=== PATIENT | female | born 1960 | race Caucasian/White ===

== ENCOUNTER 2017-07-06 15:48 | Inpatient (IN) ==
[2017-07-06] MEDS ORDERED: Pantoprazole 40 MG VIAL IVP ONE (16:04)
[2017-07-06] MEDS ORDERED: Ondansetron 4 MG/2 ML VIAL IVP ONE (16:04)
--- NOTE | 2017-07-06 16:08 | Emergency Department Note ---
Disposition Clinical Impression: Hyponatremia GI bleed Qualifiers: GI bleed type/associated pathology: unspecified gastrointestinal hemorrhage type Qualified Code(s): K92.2 - Gastrointestinal hemorrhage, unspecified Disposition: Admitted As Inpatient Condition: Fair [facility]errals: [facility]Primary Care Provider[facility] - Forms: ED Satisfaction Letter Time of Disposition: 17:33 GI Bleed HPI - General Chief complaint: ED GI Bleed Stated complaint: NV/coffee ground emesis Time Seen by Provider: 07/06/17 16:01 Source: patient, EMS, other Mode of arrival: EMS Limitations: no limitations Nursing Notes Reviewed: Yes Vital Signs Reviewed: Yes - History of Present Illness HPI Narrative: 57-year-old nausea vomiting since last night was noted to have coffee-ground emesis at the [facility] today. Pt Subjective Complaint: coffee ground emesis Onset (ago): hour(s) (12) Consistency: intermittent Improves with: nothing Worsens with: nothing Context: other (Nausea vomiting) Associated symptoms: Reports: abdominal pain - Related Data Allergies Allergy/AdvReac Type Severity Reaction Status Date / Time [place] And Derivatives Allergy Difficulty Verified 07/06/17 15:59 Breathing orange Allergy Difficulty Verified 07/06/17 15:59 Breathing codeine AdvReac Insomnia Verified 07/06/17 15:59 Pineapple AdvReac Abdominal Verified 07/06/17 15:59 Pain Constitutional: Denies: fever, chills, weakness, weight change Eyes: Denies: eye pain, eye discharge, vision change ENT ED: Denies: ear pain, throat pain, dental pain, hearing loss, epistaxis, congestion, dysphagia Cardiovascular: Denies: chest pain, palpitations, dyspnea on exertion, edema, syncope Respiratory: Denies: cough, dyspnea, wheezes, hemoptysis, stridor Gastrointestinal: Reports: abdominal pain, nausea, vomiting, hematemesis. Denies: diarrhea, constipation, melena, hematochezia Genitourinary: Denies: dysuria, frequency, hematuria, discharge Musculoskeletal: Denies: back pain, neck pain, arthralgia, myalgia Integumentary: Denies: rash, abrasion, lesions Neurological: Denies: headache, weakness, numbness, paresthesias, confusion, abnormal gait, vertigo Psychiatric: Denies: anxiety, depression, suicidal thoughts, homicidal thoughts , auditory hallucinations, visual hallucinations Endocrine: Denies: fatigue Hematological/Lymphatic: Denies: easy bleeding, easy bruising Allergic/Immunologic: Denies: facial swelling, urticaria Past Medical History - Past Medical History Medical history: Reports: asthma, other Psychiatric history: Reports: schizophrenia [employer] history: Reports: endometriosis - Social History Smoking Status: Never smoker Smokeless Tobacco Status: No Alcohol use: Reports: none Drug use: Reports: none Physical Exam - General Limitations: no limitations General appearance: alert - Head Head exam: atraumatic, normocephalic, normal inspection - Eye Eye exam: Present: normal appearance, PERRL, EOMI - ENT ENT exam: normal exam, normal oropharynx, mucous membranes moist - Neck Neck exam: Present: normal inspection, full ROM, trachea midline - Chest Chest inspection: Present: normal inspection, symmetric chest wall rise - Respiratory Respiratory exam: Present: normal lung sounds bilaterally - Cardiovascular Cardiovascular exam: Present: regular rate, normal rhythm, normal heart sounds - Abdominal Exam Abdominal exam: Present: soft, tenderness. Absent: guarding, rebound Abdominal tenderness: Present: epigastrium - Extremities Exam Extremities exam: Present: normal inspection, full ROM. Absent: tenderness, pedal edema - Expanded Lower Extremity Exam Neurovascular/Tendon exam: Absent: motor deficit, sensory deficit, tendon deficit Gait: observed and normal - Back Exam Back exam: Present: normal inspection, full ROM. Absent: tenderness - Neurological Exam Neurological exam: Present: alert, oriented X3 - Psychiatric Psychiatric exam: Present: normal affect, normal mood - Skin Skin exam: Present: warm, dry, intact, normal color Course - Reevaluation(s) Reevaluation #1: 57-year-old coffee-ground emesis was found to have a sodium of 1:15. She is mentally clear and able answer questions without any difficulty. Time: 17:32 - Consultations Consultation #1: Discussed with Dr. Bautista nephrology. Eli*normal saline at 50 mL an hour, check sodiums every 2-4 hours do not cross 120 until the a.m. I did notify the hospitalist of these orders. Time: 17:31 Consultation #2: I discussed with , and did give Dr. Bautista's recommendations to her, she will admit. Time: 17:31 Vital Signs Temperature 98.1 F 07/06/17 15:56 Pulse Rate 97 07/06/17 15:56 Respiratory Rate 20 07/06/17 15:56 Blood Pressure 112/73 07/06/17 15:56 O2 Sat by Pulse Oximetry 97 07/06/17 15:56 Temperature 98.1 F 07/06/17 15:56 Pulse Rate 97 07/06/17 17:00 Respiratory Rate 20 07/06/17 17:00 Blood Pressure 127/59 07/06/17 17:00 O2 Sat by Pulse Oximetry 96 07/06/17 17:00 Oxygen Delivery Oxygen Delivery Room Air GI Bleed - Lab Data Result diagrams: 07/06/17 16:04 07/06/17 16:04 Lab Results 07/06/17 07/06/17 07/06/17 Range/Units 16:04 16:04 16:04 WBC 12.9 H (4.3-11.1) K/mcL RBC 3.74 L (3.82-4.97) M/mcL Hgb 11.7 (11.5-15.4) g/dL Hct 32.7 L (35.3-44.9) % MCV 87.4 (83.0-100.0) fL MCH 31.3 (28.0-33.3) pg MCHC 35.8 H (31.6-35.5) g/dL RDW 12.1 (11.5-14.5) % Plt Count 322 (140-400) K/mcL MPV 9.2 L (9.4-12.4) fL Immature Gran % 0.3 (0-4) % Seg Neutrophils % 83.5 % Lymphocytes % 11.6 % Monocytes % 4.3 % Eosinophils % 0.1 % Basophils % 0.2 % Neutrophils # 10.8 H (1.6-8.9) K/mcL Lymphocytes # 1.5 (0.6-4.6) K/mcL Monocytes # 0.6 (0.0-1.3) K/mcL Eosinophils # 0.0 (0.0-0.6) K/mcL Basophils # 0.0 (0.0-0.2) K/mcL PT 11.1 (9.4-12.1) Seconds INR 1.0 APTT 28.2 (26.0-36.0) Seconds Sodium 115 L* (136-145) mEq/L Potassium 4.3 (3.5-5.1) mEq/L Chloride 81 L (98-107) mEq/L Carbon Dioxide 25 (23-29) mEq/L BUN 9 (6-20) mg/dL Creatinine 0.70 (0.60-1.20) mg/dL Est GFR ( Amer) > 60 (> 60) Est GFR (Non-Af Amer) > 60 (> 60) BUN/Creatinine Ratio 13 (6-26) Glucose 115 H (70-105) mg/dL Calculated Osmolality 240 L (280-300) Calcium 9.4 (8.6-10.3) mg/dL Blood Type Antibody Screen 07/06/17 Range/Units 16:15 WBC (4.3-11.1) K/mcL RBC (3.82-4.97) M/mcL Hgb (11.5-15.4) g/dL Hct (35.3-44.9) % MCV (83.0-100.0) fL MCH (28.0-33.3) pg MCHC (31.6-35.5) g/dL RDW (11.5-14.5) % Plt Count (140-400) K/mcL MPV (9.4-12.4) fL Immature Gran % (0-4) % Seg Neutrophils % % Lymphocytes % % Monocytes % % Eosinophils % % Basophils % % Neutrophils # (1.6-8.9) K/mcL Lymphocytes # (0.6-4.6) K/mcL Monocytes # (0.0-1.3) K/mcL Eosinophils # (0.0-0.6) K/mcL Basophils # (0.0-0.2) K/mcL PT (9.4-12.1) Seconds INR APTT (26.0-36.0) Seconds Sodium (136-145) mEq/L Potassium (3.5-5.1) mEq/L Chloride (98-107) mEq/L Carbon Dioxide (23-29) mEq/L BUN (6-20) mg/dL Creatinine (0.60-1.20) mg/dL Est GFR ( Amer) (> 60) Est GFR (Non-Af Amer) (> 60) BUN/Creatinine Ratio (6-26) Glucose (70-105) mg/dL Calculated Osmolality (280-300) Calcium (8.6-10.3) mg/dL Blood Type O POSITIVE Antibody Screen NEGATIVE - EKG Data EKG attestation: Yes I reviewed and interpreted this EKG. EKG shows normal: sinus rhythm Rate: normal Rhythm: NSR [place]/QRS: normal Interpretation: no acute changes
[2017-07-06 16:32] LABS: Basophils % 0.2 %; Eosinophils % 0.1 %; Hematocrit 32.7 % (35.3-44.9); Hemoglobin 11.7 g/dL (11.5-15.4); Immature Granulocytes % 0.3 % (0-4); Lymphocytes # 1.5 K/mcL (0.6-4.6); Lymphocytes % 11.6 %; Mean Corpuscular HGB Conc 35.8 g/dL (31.6-35.5); Mean Corpuscular Hemoglobin 31.3 pg (28.0-33.3); Mean Corpuscular Volume 87.4 fL (83.0-100.0); Mean Platelet Volume 9.2 fL (9.4-12.4); Monocytes # 0.6 K/mcL (0.0-1.3); Monocytes % 4.3 %; Neutrophils # 10.8 K/mcL (1.6-8.9); Platelet Count 322 K/mcL (140-400); Red Blood Count 3.74 M/mcL (3.82-4.97); Red Cell Distribution Width 12.1 % (11.5-14.5); Segmented Neutrophils % 83.5 %
[2017-07-06 16:41] LABS: Prothrombin Time 11.1 Seconds (9.4-12.1)
[2017-07-06 16:44] LABS: Activated Partial Thrombo Time 28.2 Seconds (26.0-36.0)
[2017-07-06 16:51] LABS: BUN/Creatinine Ratio 13 (6-26); Blood Urea Nitrogen 9 mg/dL (6-20); Calcium 9.4 mg/dL (8.6-10.3); Carbon Dioxide 25 mEq/L (23-29); Chloride 81 mEq/L (98-107); Glucose 115 mg/dL (70-105); Osmolality,Calculated 240 (280-300); Potassium 4.3 mEq/L (3.5-5.1); Sodium 115 mEq/L (136-145); eGFR For African Americans > 60 (> 60); eGFR For Non-African Americans > 60 (> 60)
[2017-07-06] MEDS ORDERED: 0.9 % Sodium Chloride 1,000 ML IVC SCH (17:30)
[2017-07-06 20:19] LABS: Hematocrit 31.5 % (35.3-44.9); Hemoglobin 11.2 g/dL (11.5-15.4)
[2017-07-06 20:48] LABS: BUN/Creatinine Ratio 12 (6-26); Blood Urea Nitrogen 9 mg/dL (6-20); Calcium 9.1 mg/dL (8.6-10.3); Carbon Dioxide 24 mEq/L (23-29); Chloride 84 mEq/L (98-107); Glucose 100 mg/dL (70-105); Osmolality,Calculated 245 (280-300); Sodium 118 mEq/L (136-145); eGFR For African Americans > 60 (> 60); eGFR For Non-African Americans > 60 (> 60)
[2017-07-06] MEDS ORDERED: Naloxone 0.4 MG/ML INJ IVP PRN (20:58)
[2017-07-06] MEDS ORDERED: D5% in 0.45% NACL 1,000 ML IVC SCH ×2 (21:00→21:15)
[2017-07-06] MEDS ORDERED: D5% in 0.45% NACL 1,000 ML IVC ONE (21:11)
[2017-07-06] MEDS: Pantoprazole 40 MG in 0.9 % Sodium Chloride Mini Bag 100 ML IVC SCH (21:33)
[2017-07-07 01:29] LABS: BUN/Creatinine Ratio 10 (6-26); Blood Urea Nitrogen 8 mg/dL (6-20); Calcium 8.8 mg/dL (8.6-10.3); Carbon Dioxide 26 mEq/L (23-29); Chloride 86 mEq/L (98-107); Glucose 106 mg/dL (70-105); Osmolality,Calculated 249 (280-300); Potassium 3.8 mEq/L (3.5-5.1); Sodium 120 mEq/L (136-145); eGFR For African Americans > 60 (> 60); eGFR For Non-African Americans > 60 (> 60)
--- NOTE | 2017-07-07 01:30 | Internal Med History&Physical ---
Date of Encounter: 07/06/17 Time of Encounter: 20:00 Internal Medicine - H&P: HPI Chief complaint: Coffee ground emesis Admitted From: Long-term Nursing Facility Plans for Post Hospital Care: [facility] History of present illness: Ms. Padilla is a 57 year old female sent to ER from longterm for coffee ground emesis. Past medical history is significant for skin cancer, schizophrenia. Patient said she had coffee ground emesis since last night. Patient has totally 4 times coffee ground emesis. She denies abdominal pain. She has mild lightheaded on getup. Patient had a bowel movement this morning, stool is black. Patient denies a fever. Patient denies blood thinner use or NSAID use. Patient was admitted for GI bleed. Patient also was found sodium level low to 115. Past Med Surg Social Fam HX - Past Medical History Medical history: asthma, other Psychiatric history: schizophrenia - Social History Smoking Status: Never smoker Smokeless Tobacco Status: No Alcohol use: none Drug use: none - Family History Mother History Unknown: Yes Internal Medicine - H&P: Meds Benztropine Mesylate 1 mg PO BID PRN 07/06/17 [History] Cholecalciferol (D-3) [Vitamin D] 1,000 unit PO DAILY 07/06/17 [History] Docusate Sodium [Stool Softener] 100 mg PO BID 07/06/17 [History] Haloperidol Decanoate [Haldol Decanoate 100] 1.5 ml IM Q2W 07/06/17 [History] Magnesium Oxide [Magnesium] 250 mg PO QTUTHSA 07/06/17 [History] Multivitamin [Multivitamins] 1 each PO DAILY 07/06/17 [History] 3 Allergy/AdvReac Type Severity Reaction Status Date / Time [place] And Derivatives Allergy Difficulty Verified 07/06/17 15:59 Breathing orange Allergy Difficulty Verified 07/06/17 15:59 Breathing codeine AdvReac Insomnia Verified 07/06/17 15:59 Pineapple AdvReac Abdominal Verified 07/06/17 15:59 Pain All Systems PM: A 10-system review of systems was performed and is negative for pertinent findings except as documented above in the HPI. - Constitutional Vitals: Temp Pulse Resp BP Pulse Ox 98.8 F 95 20 132/71 97 07/06/17 19:40 07/06/17 19:40 07/06/17 19:40 07/06/17 19:40 07/06/17 21:01 General appearance: Present: A&O X 3, no acute distress, answers questions appropriately - Head Head exam: Present: atraumatic, normocephalic - Eye Eye exam: Present: PERRL, conjuntiva pink, sclera anicteric Pupils: Present: PERRL - Neck Neck exam general surgery: Present: supple, trachea midline. Absent: lymphadenopathy - Respiratory Respiratory exam: Present: CTAB. Absent: accessory muscle use, rales, rhonchi, wheezes - Cardiovascular Cardiovascular exam: Present: RRR, +S1, +S2. Absent: diastolic murmur, gallop, rubs, systolic murmur - GI/Abdominal GI/Abdominal exam: Present: normal bowel sounds, soft, no peritoneal signs. Absent: distended, tenderness - Extremities Exam Extremities exam: Present: warm, radial pulses palpable and symmetrical. Absent : calf tenderness, cyanotic, pedal edema - Neurological Exam Neurological exam: Present: CN II-XII intact, oriented X3, no focal deficits. Absent: pronater drift, facial droop, speech deficit - Skin Skin exam: Present: dry, intact Internal Med - H&P Results - Labs CBC & Chem 7: 07/06/17 20:11 07/06/17 20:11 Labs: Short CBC 07/06/17 Range/Units 20:11 Hgb 11.2 L (11.5-15.4) g/dL Hct 31.5 L (35.3-44.9) % BMP 07/06/17 20:11 Sodium 118 L* Potassium 4.0 Chloride 84 L Carbon Dioxide 24 BUN 9 Creatinine 0.74 Glucose 100 Calcium 9.1 - Assessment and plan (1) Schizophrenia Current Visit: Yes Status: Acute Assessment and plan: Patient use long-term halodol injection. Still have some paranoid symptoms. Will consult psychiatry for management. Qualifiers: Schizophrenia type: unspecified Qualified Code(s): F20.9 - Schizophrenia, unspecified (2) Mass of left thigh Current Visit: Yes Status: Acute Assessment and plan: Patient has a large mass on left thigh. She said that she has this for about 1 year, increased size gradually, with tenderness. Patient has a history of skin cancer on left lower leg, S/P resection, with scars. 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 (3) DVT prophylaxis Current Visit: Yes Status: Acute Assessment and plan: EPCD (4) GI bleed Current Visit: Yes Status: Acute Assessment and plan: Patient has coffee ground emesis. Consider GI bleed. etiology is undetermined. Currently hemoglobin and vitals are stable - Place patient on IV fluid, IV PPI, nothing by mouth - Closely monitor H&H and vitals - Consult surgery for further management Qualifiers: GI bleed type/associated pathology: unspecified gastrointestinal hemorrhage type Qualified Code(s): K92.2 - Gastrointestinal hemorrhage, unspecified (5) Hyponatremia Current Visit: Yes Status: Acute Assessment and plan: Patient is on benzotroponin. Most likely hyponatremia is caused by polydipsia cause by benzotropin use. Assume it is chronic although patient has no previous lab result available. - Placing patient on low rate 0.45%+D5 fluid. - Closely monitor sodium level every 4 hours. - Goal of correction is not over 8 mEq within first hour. - Nephrology consult - Time Spent With Patient Total time spent is greater than 50% in coordination of care (as documented) at patient's floor/unit and/or counseling patient: 40 minutes Greater than 35 minutes
[2017-07-07] MEDS: Pantoprazole 40 MG in 0.9 % Sodium Chloride Mini Bag 100 ML IVC SCH ×4 (03:56→19:59)
[2017-07-07 04:10] LABS: Basophils % 0.2 %; Eosinophils # 0.1 K/mcL (0.0-0.6); Eosinophils % 0.7 %; Hematocrit 30.2 % (35.3-44.9); Hemoglobin 10.8 g/dL (11.5-15.4); Immature Granulocytes % 0.5 % (0-4); Lymphocytes # 1.7 K/mcL (0.6-4.6); Lymphocytes % 19.6 %; Mean Corpuscular HGB Conc 35.8 g/dL (31.6-35.5); Mean Corpuscular Hemoglobin 31.4 pg (28.0-33.3); Mean Corpuscular Volume 87.8 fL (83.0-100.0); Mean Platelet Volume 9.3 fL (9.4-12.4); Monocytes # 0.8 K/mcL (0.0-1.3); Monocytes % 8.7 %; Neutrophils # 6.2 K/mcL (1.6-8.9); Nucleated Red Blood Cells 0.2 /100 WBC (0); Platelet Count 285 K/mcL (140-400); Red Blood Count 3.44 M/mcL (3.82-4.97); Red Cell Distribution Width 12.4 % (11.5-14.5); Segmented Neutrophils % 70.3 %
[2017-07-07 04:37] LABS: BUN/Creatinine Ratio 10 (6-26); Blood Urea Nitrogen 8 mg/dL (6-20); Calcium 8.8 mg/dL (8.6-10.3); Carbon Dioxide 25 mEq/L (23-29); Chloride 90 mEq/L (98-107); Glucose 106 mg/dL (70-105); Osmolality,Calculated 257 (280-300); Potassium 3.7 mEq/L (3.5-5.1); Sodium 124 mEq/L (136-145); eGFR For African Americans > 60 (> 60); eGFR For Non-African Americans > 60 (> 60)
[2017-07-07] MEDS ORDERED: D5% in Water 1,000 ML IVC SCH (09:45)
--- NOTE | 2017-07-07 09:50 | General Surgery Consult Note ---
<Scottie Tiwari - Last Filed: 07/07/17 11:47> Date of Encounter: 07/07/17 Time of Encounter: 08:15 Assessment and Plan (1) GI bleed Current Visit: Yes Status: Acute Patient presented with "coffee ground" emesis and melena. petient denies continued hematemesis. Hgb 10.8 this morning. Plan: clear liquid diet now NPO at midnight EGD tomorrow continue PPI continue to monitor Qualifiers: GI bleed type/associated pathology: unspecified gastrointestinal hemorrhage type Qualified Code(s): K92.2 - Gastrointestinal hemorrhage, unspecified (2) Hyponatremia Current Visit: Yes Status: Acute Improving Management per primary team. (3) Schizophrenia Current Visit: Yes Status: Acute Psychiatry consulted management per psych and primary Qualifiers: Schizophrenia type: unspecified Qualified Code(s): F20.9 - Schizophrenia, unspecified History of Present Illness Consult date: 07/06/17 Reason for consult: endoscopy Requesting physician: Yola Justice History of present illness: 57F c PMHx of Schizophrenia reports to the ED c/o Vomiting since night prior to admission with coffee-ground emesis noted. [facility]. Patient reports vomiting 4x. She denies there beign any blood, but by reprot the emesis was coffee ground in nature. BM morning of admission was black. Patient denies being on blood thinner or NSAID. Patient reported some lightheadedness when standing, but deneis SOB, chest pain, fever, chills, abdominal pain. Patient was worked up in the ED and found to have hemeocullt positive stool. Hgb was stable at 11.7. Nicole was also incidently foudn to have hyponatremia of 115 and a mass on her thigh suspiscious for neoplasm on CT. Nephrology was consulted for hyponatremia. Past Med Surg Social Fam HX - Past Medical History Medical history: asthma, other Psychiatric history: schizophrenia - Social History Smoking Status: Never smoker Smokeless Tobacco Status: No Alcohol use: none Drug use: none - Family History Mother History Unknown: Yes Medications and Allergies Benztropine Mesylate 1 mg PO BID PRN 07/06/17 [History] Cholecalciferol (D-3) [Vitamin D] 1,000 unit PO DAILY 07/06/17 [History] Docusate Sodium [Stool Softener] 100 mg PO BID 07/06/17 [History] Haloperidol Decanoate [Haldol Decanoate 100] 1.5 ml IM Q2W 07/06/17 [History] Magnesium Oxide [Magnesium] 250 mg PO QTUTHSA 07/06/17 [History] Multivitamin [Multivitamins] 1 each PO DAILY 07/06/17 [History] 3 Allergy/AdvReac Type Severity Reaction Status Date / Time [place] And Derivatives Allergy Difficulty Verified 07/07/17 11:29 Breathing orange Allergy Difficulty Verified 07/07/17 11:29 Breathing codeine AdvReac Insomnia Verified 07/07/17 11:29 Pineapple AdvReac Abdominal Verified 07/07/17 11:29 Pain Review of Systems All systems PM: The remainder of the systems were reviewed and are negative General Surgery Exam Initial Vital Signs Temp Pulse Resp BP Pulse Ox 98.1 F 97 20 112/73 97 07/06/17 15:56 07/06/17 15:56 07/06/17 15:56 07/06/17 15:56 07/06/17 15:56 - General physical appearance well developed, well nourished, no distress - Eyes normal ocular movement - ENT normal mucosa - Neck trachea midline - Respiratory normal expansion, normal respiratory effort, clear to auscultation - Cardiovascular Cardiovascular exam: Present: RRR, no murmurs/rubs/gallops - Abdomen Abdomen general surgery: Present: bowel sounds present, soft, non tender - Integumentary Integumentary general surgery: Present: warm and dry - Neurologic Absent: combative, confused - Musculoskeletal Present: normal posture - Psychiatric Psychiatric general surgery: Present: other (Flat affect) Exam Initial Vital Signs Temp Pulse Resp BP Pulse Ox 98.1 F 97 20 112/73 97 07/06/17 15:56 07/06/17 15:56 07/06/17 15:56 07/06/17 15:56 07/06/17 15:56 Results - Labs 07/07/17 04:00 07/07/17 09:15 Abnormal lab results RBC 3.44 M/mcL (3.82-4.97) L 07/07/17 04:00 Hgb 10.8 g/dL (11.5-15.4) L 07/07/17 04:00 Hct 30.2 % (35.3-44.9) L 07/07/17 04:00 MCHC 35.8 g/dL (31.6-35.5) H 07/07/17 04:00 MPV 9.3 fL (9.4-12.4) L 07/07/17 04:00 Nucleated RBCs/100 WBC 0.2 /100 WBC (0) H 07/07/17 04:00 Sodium 124 mEq/L (136-145) L 07/07/17 04:00 Chloride 90 mEq/L (98-107) L 07/07/17 04:00 Glucose 106 mg/dL (70-105) H 07/07/17 04:00 POC Glucose 107 mg/dL (70-99) H 07/07/17 01:27 Calculated Osmolality 257 (280-300) L 07/07/17 04:00 Diabetes panel 07/06/17 07/07/17 07/07/17 Range/Units 20:11 00:35 04:00 Sodium 118 L* 120 L* 124 L (136-145) mEq/L Potassium 4.0 3.8 3.7 (3.5-5.1) mEq/L Chloride 84 L 86 L 90 L (98-107) mEq/L Carbon Dioxide 24 26 25 (23-29) mEq/L BUN 9 8 8 (6-20) mg/dL Creatinine 0.74 0.78 0.79 (0.60-1.20) mg/dL Glucose 100 106 H 106 H (70-105) mg/dL Calcium 9.1 8.8 8.8 (8.6-10.3) mg/dL Calcium panel 07/06/17 07/07/17 07/07/17 Range/Units 20:11 00:35 04:00 Calcium 9.1 8.8 8.8 (8.6-10.3) mg/dL Pituitary panel 07/06/17 07/07/17 07/07/17 Range/Units 20:11 00:35 04:00 Sodium 118 L* 120 L* 124 L (136-145) mEq/L Potassium 4.0 3.8 3.7 (3.5-5.1) mEq/L Chloride 84 L 86 L 90 L (98-107) mEq/L Carbon Dioxide 24 26 25 (23-29) mEq/L BUN 9 8 8 (6-20) mg/dL Creatinine 0.74 0.78 0.79 (0.60-1.20) mg/dL Glucose 100 106 H 106 H (70-105) mg/dL Calcium 9.1 8.8 8.8 (8.6-10.3) mg/dL Adrenal panel 07/06/17 07/07/17 07/07/17 Range/Units 20:11 00:35 04:00 Sodium 118 L* 120 L* 124 L (136-145) mEq/L Potassium 4.0 3.8 3.7 (3.5-5.1) mEq/L Chloride 84 L 86 L 90 L (98-107) mEq/L Carbon Dioxide 24 26 25 (23-29) mEq/L BUN 9 8 8 (6-20) mg/dL Creatinine 0.74 0.78 0.79 (0.60-1.20) mg/dL Glucose 100 106 H 106 H (70-105) mg/dL Calcium 9.1 8.8 8.8 (8.6-10.3) mg/dL All other labs normal. Consult Discharge Plan - Plan [facility]errals: [facility]Primary Care Provider[facility] - 07/19/17 11:00 am <Jayden Maria - Last Filed: 07/08/17 15:03> Date of Encounter: 07/07/17 Review of Systems All systems PM: The remainder of the systems were reviewed and are negative General Surgery Exam Initial Vital Signs Temp Pulse Resp BP Pulse Ox 98.1 F 97 20 112/73 97 07/06/17 15:56 07/06/17 15:56 07/06/17 15:56 07/06/17 15:56 07/06/17 15:56 Exam Initial Vital Signs Temp Pulse Resp BP Pulse Ox 98.1 F 97 20 112/73 97 07/06/17 15:56 07/06/17 15:56 07/06/17 15:56 07/06/17 15:56 07/06/17 15:56 Results - Labs 07/08/17 00:48 07/08/17 10:27 Abnormal lab results RBC 3.20 M/mcL (3.82-4.97) L 07/08/17 00:48 Hgb 10.1 g/dL (11.5-15.4) L 07/08/17 00:48 Hct 29.4 % (35.3-44.9) L 07/08/17 00:48 Nucleated RBCs/100 WBC 0.2 /100 WBC (0) H 07/08/17 00:48 Sodium 124 mEq/L (136-145) L 07/08/17 10:27 BUN 5 mg/dL (6-20) L 07/08/17 00:48 Serum Osmolality 278 mOsm/kg (280-300) L 07/07/17 12:59 Calculated Osmolality 266 (280-300) L 07/08/17 00:48 Calcium 8.3 mg/dL (8.6-10.3) L 07/08/17 00:48 Iron 42 mcg/dL (50-170) L 07/08/17 00:48 % Saturation 13 % (15-50) L 07/08/17 00:48 Folate > 22.3 ng/mL (3.0-16.0) H 07/08/17 00:48 Urine Osmolality 91 mOsm/kg (300-1090) L 07/07/17 20:25 Diabetes panel 07/07/17 07/07/17 07/08/17 Range/Units 16:48 20:28 00:48 Sodium 134 L 132 L 129 L (136-145) mEq/L Potassium (3.5-5.1) mEq/L Chloride (98-107) mEq/L Carbon Dioxide (23-29) mEq/L BUN (6-20) mg/dL Creatinine (0.60-1.20) mg/dL Glucose (70-105) mg/dL Calcium (8.6-10.3) mg/dL 07/08/17 07/08/17 07/08/17 Range/Units 00:48 04:46 10:27 Sodium 129 L 127 L 124 L (136-145) mEq/L Potassium 3.5 (3.5-5.1) mEq/L Chloride 101 (98-107) mEq/L Carbon Dioxide 26 (23-29) mEq/L BUN 5 L (6-20) mg/dL Creatinine 0.72 (0.60-1.20) mg/dL Glucose 104 (70-105) mg/dL Calcium 8.3 L (8.6-10.3) mg/dL Calcium panel 07/08/17 Range/Units 00:48 Calcium 8.3 L (8.6-10.3) mg/dL Pituitary panel 07/07/17 07/07/17 07/08/17 Range/Units 16:48 20:28 00:48 Sodium 134 L 132 L 129 L (136-145) mEq/L Potassium (3.5-5.1) mEq/L Chloride (98-107) mEq/L Carbon Dioxide (23-29) mEq/L BUN (6-20) mg/dL Creatinine (0.60-1.20) mg/dL Glucose (70-105) mg/dL Calcium (8.6-10.3) mg/dL 07/08/17 07/08/17 07/08/17 Range/Units 00:48 04:46 10:27 Sodium 129 L 127 L 124 L (136-145) mEq/L Potassium 3.5 (3.5-5.1) mEq/L Chloride 101 (98-107) mEq/L Carbon Dioxide 26 (23-29) mEq/L BUN 5 L (6-20) mg/dL Creatinine 0.72 (0.60-1.20) mg/dL Glucose 104 (70-105) mg/dL Calcium 8.3 L (8.6-10.3) mg/dL Adrenal panel 07/07/17 07/07/17 07/08/17 Range/Units 16:48 20:28 00:48 Sodium 134 L 132 L 129 L (136-145) mEq/L Potassium (3.5-5.1) mEq/L Chloride (98-107) mEq/L Carbon Dioxide (23-29) mEq/L BUN (6-20) mg/dL Creatinine (0.60-1.20) mg/dL Glucose (70-105) mg/dL Calcium (8.6-10.3) mg/dL 07/08/17 07/08/17 07/08/17 Range/Units 00:48 04:46 10:27 Sodium 129 L 127 L 124 L (136-145) mEq/L Potassium 3.5 (3.5-5.1) mEq/L Chloride 101 (98-107) mEq/L Carbon Dioxide 26 (23-29) mEq/L BUN 5 L (6-20) mg/dL Creatinine 0.72 (0.60-1.20) mg/dL Glucose 104 (70-105) mg/dL Calcium 8.3 L (8.6-10.3) mg/dL All other labs normal. - Attending Attestation I examined this patient and my medical decision-making was reviewed with the Resident Physician. I agree with the documented findings, disposition and treatment plan as described except to the extent set forth below. The patient is seen and evaluated with the resident on morning rounds. The patient has coffee-ground emesis. Because of her personal history of schizophrenia, I would like to involve anesthesia in her sedation. We will schedule her for upper endoscopy tomorrow Jayden Maria MD FACS
[2017-07-07 09:54] LABS: BUN/Creatinine Ratio 9 (6-26); Blood Urea Nitrogen 7 mg/dL (6-20); Calcium 8.9 mg/dL (8.6-10.3); Carbon Dioxide 26 mEq/L (23-29); Chloride 96 mEq/L (98-107); Glucose 108 mg/dL (70-105); Osmolality,Calculated 269 (280-300); Sodium 130 mEq/L (136-145); eGFR For African Americans > 60 (> 60); eGFR For Non-African Americans > 60 (> 60)
--- NOTE | 2017-07-07 09:57 | Nephrology Consult Note ---
Date of Encounter: 07/07/17 Time of Encounter: 09:56 Assessment and Plan (1) Hyponatremia Current Visit: Yes Status: Acute Patient presented with significant asymptomatic hyponatremia. I recommend correction of no more than an increase in sodium of 8 - 10 meq/L/day As she seems to be correcting above that rate her intravenous fluids have been changed to D5 and she may need to get a dose of Ddavp to lower her sodium level as she seems to be autocorrecting now that her nausea/vomiting have resolved. (2) GI bleed Current Visit: Yes Status: Acute Patient with anemia. Gen surgery following and plans on performing an EGD Saturday. Qualifiers: GI bleed type/associated pathology: unspecified gastrointestinal hemorrhage type Qualified Code(s): K92.2 - Gastrointestinal hemorrhage, unspecified (3) Schizophrenia Current Visit: Yes Status: Acute Per primary team. Qualifiers: Schizophrenia type: unspecified Qualified Code(s): F20.9 - Schizophrenia, unspecified (4) Anemia Current Visit: Yes Status: Acute work-up ordered. Qualifiers: Qualified Code(s): D64.9 - Anemia, unspecified History of Present Illness - Reason for Consult Consult date: 07/07/17 hyponatremia - Chief Complaint Hyponatremia - History of Present Illness Ms. Palm is a 57 yo woman with a history of schizophrenia who presented with coffe ground emesis. She was found to have significant hyponatremia and [facility] was consulted. She states she feels better and denies any further emesis. She denies chest pain or shortness of breath. Past Med Surg Social Fam HX - Past Medical History Medical history: asthma, other Psychiatric history: schizophrenia - Social History Smoking Status: Never smoker Smokeless Tobacco Status: No Alcohol use: none Drug use: none - Family History Mother History Unknown: Yes Medications and Allergies Benztropine Mesylate 1 mg PO BID PRN 07/06/17 [History] Cholecalciferol (D-3) [Vitamin D] 1,000 unit PO DAILY 07/06/17 [History] Docusate Sodium [Stool Softener] 100 mg PO BID 07/06/17 [History] Haloperidol Decanoate [Haldol Decanoate 100] 1.5 ml IM Q2W 07/06/17 [History] Magnesium Oxide [Magnesium] 250 mg PO QTUTHSA 07/06/17 [History] Multivitamin [Multivitamins] 1 each PO DAILY 07/06/17 [History] 3 Allergy/AdvReac Type Severity Reaction Status Date / Time [place] And Derivatives Allergy Difficulty Verified 07/07/17 11:29 Breathing orange Allergy Difficulty Verified 07/07/17 11:29 Breathing codeine AdvReac Insomnia Verified 07/07/17 11:29 Pineapple AdvReac Abdominal Verified 07/07/17 11:29 Pain Review of Systems All Systems: reviewed and no additional remarkable complaints except as stated ( as documented in the HPI.) Exam - Vital Signs Vital signs: Initial Vital Signs Temp Pulse Resp BP Pulse Ox 98.1 F 97 20 112/73 97 07/06/17 15:56 07/06/17 15:56 07/06/17 15:56 07/06/17 15:56 07/06/17 15:56 Vital Signs - Last 8 Hours Temp Pulse Resp BP Pulse Ox 07/07/17 08:05 98.3 F 85 16 109/56 99 07/07/17 04:49 98.4 F 81 18 117/58 98 Intake and Output 07/06/17 07/07/17 07/07/17 23:59 07:59 15:59 Intake Total 50 / 50 100 / 100 Output Total 300 / 300 800 / 800 Balance -250 / -250 -700 / -700 Intake: IV Fluids 50 / 50 100 / 100 0.9 % Sodium Chloride 1,000 ML 50 / 50 @ 50 mls/hr IVC .Q20H [facility] Rx#: [id number] Protonix 40 MG In 0.9 % Sodium 100 / 100 Chloride (Mini-Bag +) 100 ML @ 20 mls/hr IVC .Q5H [facility] Rx#: [id number] Output: Urine 300 / 300 800 / 800 Other: Meal NPO Stool Size Smear Stool Consistency soft Stool Color Brown Weight 63.1 kg 60 kg Blood Glucose* 96 Patient Weight 07/07/17 23:59 Weight 60 kg - General Appearance General appearance: well-developed, well-nourished EENT: ATNC Neck: supple Respiratory: clear Cardiology: no edema, regular rate, regular rhythm Gastrointestinal: normoactive bowel sounds, no tenderness Musculoskeletal: no cyanosis Psychiatric: mood/affect appropriate Results - Lab Results 07/07/17 04:00 07/07/17 09:15 Most recent lab results Calcium 8.9 mg/dL (8.6-10.3) 07/07/17 09:15 Magnesium 1.8 mg/dL (1.6-2.6) 07/07/17 04:00 Consult Discharge Plan - Plan [facility]: [facility] [Primary Care Provider[facility] -
--- NOTE | 2017-07-07 10:24 | Internal Med Progress Note ---
Date of Encounter: 07/07/17 Time of Encounter: 10:00 - Assessment and plan (1) GI bleed Current Visit: Yes Status: Acute Assessment and plan: Patient has coffee ground emesis. Consider GI bleed. etiology is undetermined. Currently hemoglobin and vitals are stable - Place patient on IV fluid, IV PPI, nothing by mouth - Closely monitor H&H and vitals - Appreciate surgery recs Qualifiers: GI bleed type/associated pathology: unspecified gastrointestinal hemorrhage type Qualified Code(s): K92.2 - Gastrointestinal hemorrhage, unspecified (2) Hyponatremia Current Visit: Yes Status: Acute Assessment and plan: Patient is on benzotroponin. Possibly hyponatremia is caused by polydipsia cause by benzotropin use vs dehydration. continue IV fluids. Sodium levels were 130 today. Appreciate renal recs (3) Schizophrenia Current Visit: Yes Status: Acute Assessment and plan: Patient use long-term halodol injection. Still have some paranoid symptoms. Will consult psychiatry for management. Qualifiers: Schizophrenia type: unspecified Qualified Code(s): F20.9 - Schizophrenia, unspecified (4) Mass of left thigh Current Visit: Yes Status: Acute Assessment and plan: Patient has a large mass on left thigh. She said that she has this for about 1 year, increased size gradually, with tenderness. Patient has a history of skin cancer on left lower leg, S/P resection, with scars. 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 (5) DVT prophylaxis Current Visit: Yes Status: Acute Assessment and plan: EPCD - Time Spent With Patient Total time spent is greater than 50% in coordination of care (as documented) at patient's floor/unit and/or counseling patient: - Subjective Interval history: No acute events overnight - Constitutional Vitals: Temp Pulse Resp BP Pulse Ox 98.3 F 85 16 109/56 99 07/07/17 08:05 07/07/17 08:05 07/07/17 08:05 07/07/17 08:05 07/07/17 08:05 General appearance: Present: A&O X 3, no acute distress, answers questions appropriately - Head Head exam: Present: atraumatic, normocephalic - Eye Eye exam: Present: PERRL, conjuntiva pink, sclera anicteric Pupils: Present: PERRL - Neck Neck exam general surgery: Present: supple, trachea midline. Absent: lymphadenopathy - Respiratory Respiratory exam: Present: CTAB. Absent: accessory muscle use, rales, rhonchi, wheezes - Cardiovascular Cardiovascular exam: Present: RRR, +S1, +S2. Absent: diastolic murmur, gallop, rubs, systolic murmur - GI/Abdominal GI/Abdominal exam: Present: normal bowel sounds, soft, no peritoneal signs. Absent: distended, tenderness - Extremities Exam Extremities exam: Present: warm, radial pulses palpable and symmetrical. Absent : calf tenderness, cyanotic, pedal edema - Neurological Exam Neurological exam: Present: CN II-XII intact, oriented X3, no focal deficits. Absent: pronater drift, facial droop, speech deficit - Skin Skin exam: Present: dry, intact Internal Medicine: Result - Labs CBC & Chem 7: 07/07/17 04:00 07/07/17 09:15 Labs: Short CBC 07/06/17 07/07/17 Range/Units 20:11 04:00 WBC 8.8 (4.3-11.1) K/mcL Hgb 11.2 L 10.8 L (11.5-15.4) g/dL Hct 31.5 L 30.2 L (35.3-44.9) % Plt Count 285 (140-400) K/mcL Neutrophils # 6.2 (1.6-8.9) K/mcL BMP 07/06/17 07/07/17 07/07/17 20:11 00:35 04:00 Sodium 118 L* 120 L* 124 L Potassium 4.0 3.8 3.7 Chloride 84 L 86 L 90 L Carbon Dioxide 24 26 25 BUN 9 8 8 Creatinine 0.74 0.78 0.79 Glucose 100 106 H 106 H Calcium 9.1 8.8 8.8 07/07/17 09:15 Sodium 130 L Potassium 4.0 Chloride 96 L Carbon Dioxide 26 BUN 7 Creatinine 0.74 Glucose 108 H Calcium 8.9 - ABG Interpretation ABG results: PT/INR, D-dimer PT 11.1 Seconds (9.4-12.1) 07/06/17 16:04 Consult Discharge Plan - Plan [facility]errals: [facility] [Primary Care Provider] -
[2017-07-07] MEDS ORDERED: D5% in 0.9% NACL 1,000 ML IVC SCH (10:45)
[2017-07-07] MEDS ORDERED: Pantoprazole 40 MG VIAL ONE (10:47)
[2017-07-07] MEDS ORDERED: Desmopressin Acetate SPRAY 5 ML BOTTLE NS ONE ×2 (12:35→15:38)
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
--- NOTE | 2017-07-07 20:33 | Event Note ---
Date of Encounter: 07/07/17 Time of Encounter: 20:00 Noticed sodium increased to 134, which is too fast correction. Will hold 0.9% D5 and switch to D5 water at 100ml per hour. Closely monitor Na every 4 hours.
[2017-07-07] MEDS: D5% in Water 1,000 ML IVC SCH (20:36)
[2017-07-08 01:06] LABS: Basophils % 0.3 %; Eosinophils # 0.1 K/mcL (0.0-0.6); Eosinophils % 1.1 %; Hematocrit 29.4 % (35.3-44.9); Hemoglobin 10.1 g/dL (11.5-15.4); Immature Granulocytes % 0.2 % (0-4); Lymphocytes # 1.5 K/mcL (0.6-4.6); Lymphocytes % 17.7 %; Mean Corpuscular HGB Conc 34.4 g/dL (31.6-35.5); Mean Corpuscular Hemoglobin 31.6 pg (28.0-33.3); Mean Corpuscular Volume 91.9 fL (83.0-100.0); Mean Platelet Volume 9.7 fL (9.4-12.4); Monocytes # 0.9 K/mcL (0.0-1.3); Monocytes % 10.5 %; Neutrophils # 6.1 K/mcL (1.6-8.9); Nucleated Red Blood Cells 0.2 /100 WBC (0); Platelet Count 248 K/mcL (140-400); Red Cell Distribution Width 12.9 % (11.5-14.5); Segmented Neutrophils % 70.2 %
[2017-07-08] MEDS: Pantoprazole 40 MG in 0.9 % Sodium Chloride Mini Bag 100 ML IVC SCH ×2 (01:07→06:27)
[2017-07-08 01:23] LABS: % Iron Saturation 13 % (15-50); BUN/Creatinine Ratio 7 (6-26); Blood Urea Nitrogen 5 mg/dL (6-20); Calcium 8.3 mg/dL (8.6-10.3); Carbon Dioxide 26 mEq/L (23-29); Chloride 101 mEq/L (98-107); Ferritin 107 ng/ml (10-120); Glucose 104 mg/dL (70-105); Iron 42 mcg/dL (50-170); Osmolality,Calculated 266 (280-300); Potassium 3.5 mEq/L (3.5-5.1); Sodium 129 mEq/L (136-145); Transferrin 239 mg/dL (203-362); eGFR For African Americans > 60 (> 60); eGFR For Non-African Americans > 60 (> 60)
[2017-07-08 01:48] LABS: Vitamin B12 512 pg/mL (250-1100)
[2017-07-08 01:57] LABS: Folate > 22.3 ng/mL (3.0-16.0)
[2017-07-08] MEDS: D5% in Water 1,000 ML IVC SCH (06:27)
[2017-07-08] MEDS ORDERED: Simethicone 40 MG/0.6 ML MLS IR ONE (08:16)
[2017-07-08] MEDS ORDERED: *HR* FentaNYL (PF) 100 MCG/2 ML VIAL IVP ONE (08:16)
[2017-07-08] MEDS ORDERED: *HR* Midazolam HCl 2 MG/2 ML VIAL IVP ONE (08:16)
[2017-07-08] MEDS ORDERED: Tetracaine/Benzocaine/Butamben 200MG/SPRAY (100SPY/BOT) MM ONE (08:16)
--- NOTE | 2017-07-08 08:17 | Pre-Sedation Evaluation ---
Pre-sedation evaluation - Pre-sedation checklist Date of procedure: 07/08/17 Procedure: EGD Recent Vitals: Last Vital Signs Temp 98.4 F 07/08/17 07:23 Pulse 84 07/08/17 07:23 Resp 18 07/08/17 07:23 BP 122/79 07/08/17 07:23 Pulse Ox 97 07/08/17 07:23 H&P (including ROS) documented in medical record: Yes Previous reaction to sedatives/anesthetics: No Dietary Status: NPO after Midnight Airway Assessment: Patient can open mouth completely, TMJ function normal Dentition: No loose teeth or bridges Possible difficult airway: No ASA Classification *see protocol: CLASS III-Severe systemic disease Plan of Care: Pt appropriate candidate for procedure/moderate/conscious sedation , Risks/benefits of procedure/sedation discussed w/ patient/family
[2017-07-08] MEDS ORDERED: 0.9 % Sodium Chloride 1,000 ML IVC SCH (08:30)
--- NOTE | 2017-07-08 09:16 | Internal Med Progress Note ---
Date of Encounter: 07/08/17 Time of Encounter: 09:00 - Assessment and plan (1) GI bleed Current Visit: Yes Status: Acute Assessment and plan: Patient has coffee ground emesis. Consider GI bleed. etiology is undetermined. Currently hemoglobin and vitals are stable - Place patient on IV fluid, IV PPI, nothing by mouth Plan for EGD this am Qualifiers: GI bleed type/associated pathology: unspecified gastrointestinal hemorrhage type Qualified Code(s): K92.2 - Gastrointestinal hemorrhage, unspecified (2) Hyponatremia Current Visit: Yes Status: Acute Assessment and plan: Patient is on benzotroponin. Possibly hyponatremia is caused by polydipsia cause by benzotropin use vs dehydration. continue IV fluids with D5 and avoid overcorrection. Appreciate renal recs (3) Schizophrenia Current Visit: Yes Status: Chronic Assessment and plan: Patient use long-term halodol injection. Still have some paranoid symptoms. Will consult psychiatry for management. Qualifiers: Schizophrenia type: unspecified Qualified Code(s): F20.9 - Schizophrenia, unspecified (4) DVT prophylaxis Current Visit: Yes Status: Acute Assessment and plan: EPCD - Time Spent With Patient Total time spent is greater than 50% in coordination of care (as documented) at patient's floor/unit and/or counseling patient: - Subjective Interval history: No acute events overnight - Constitutional Vitals: Temp Pulse Resp BP Pulse Ox 98.4 F 82 18 122/79 97 07/08/17 07:23 07/08/17 08:52 07/08/17 07:23 07/08/17 07:23 07/08/17 08:52 General appearance: Present: A&O X 3, no acute distress, answers questions appropriately - Head Head exam: Present: atraumatic, normocephalic - Eye Eye exam: Present: PERRL, conjuntiva pink, sclera anicteric Pupils: Present: PERRL - Neck Neck exam general surgery: Present: supple, trachea midline. Absent: lymphadenopathy - Respiratory Respiratory exam: Present: CTAB. Absent: accessory muscle use, rales, rhonchi, wheezes - Cardiovascular Cardiovascular exam: Present: RRR, +S1, +S2. Absent: diastolic murmur, gallop, rubs, systolic murmur - GI/Abdominal GI/Abdominal exam: Present: normal bowel sounds, soft, no peritoneal signs. Absent: distended, tenderness - Extremities Exam Extremities exam: Present: warm, radial pulses palpable and symmetrical. Absent : calf tenderness, cyanotic, pedal edema - Neurological Exam Neurological exam: Present: CN II-XII intact, oriented X3, no focal deficits. Absent: pronater drift, facial droop, speech deficit - Skin Skin exam: Present: dry, intact Internal Medicine: Result - Labs CBC & Chem 7: 07/08/17 00:48 07/08/17 10:27 Labs: Short CBC 07/08/17 Range/Units 00:48 WBC 8.7 (4.3-11.1) K/mcL Hgb 10.1 L (11.5-15.4) g/dL Hct 29.4 L (35.3-44.9) % Plt Count 248 (140-400) K/mcL Neutrophils # 6.1 (1.6-8.9) K/mcL BMP 07/07/17 07/07/17 07/07/17 09:15 12:59 16:48 Sodium 130 L 130 L 134 L Potassium 4.0 Chloride 96 L Carbon Dioxide 26 BUN 7 Creatinine 0.74 Glucose 108 H Calcium 8.9 07/07/17 07/08/17 07/08/17 20:28 00:48 00:48 Sodium 132 L 129 L 129 L Potassium 3.5 Chloride 101 Carbon Dioxide 26 BUN 5 L Creatinine 0.72 Glucose 104 Calcium 8.3 L 07/08/17 04:46 Sodium 127 L Potassium Chloride Carbon Dioxide BUN Creatinine Glucose Calcium - ABG Interpretation ABG results: PT/INR, D-dimer PT 11.1 Seconds (9.4-12.1) 07/06/17 16:04 - VTE Documentation of Mechanical Device: Intermittent pneumatic compression device Consult Discharge Plan - Plan [facility]errals: [facility] [Primary Care Provider] - 07/19/17 11:00 am
--- NOTE | 2017-07-08 11:08 | Anesthesia Evaluation PreOp ---
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) Other Medical History: GERD (occasional), Other (hyponatremia) Anesthesia History: No Prior Anesthetic Complications, Past Anesthesia Alcohol Use: none Drug use: none Medications and Allergies Benztropine Mesylate 1 mg PO BID PRN 07/06/17 [History] Cholecalciferol (D-3) [Vitamin D] 1,000 unit PO DAILY 07/06/17 [History] Docusate Sodium [Stool Softener] 100 mg PO BID 07/06/17 [History] Haloperidol Decanoate [Haldol Decanoate 100] 1.5 ml IM Q2W 07/06/17 [History] Magnesium Oxide [Magnesium] 250 mg PO QTUTHSA 07/06/17 [History] Multivitamin [Multivitamins] 1 each PO DAILY 07/06/17 [History] 3 Allergy/AdvReac Type Severity Reaction Status Date / Time [place] And Derivatives Allergy Difficulty Verified 07/07/17 11:29 Breathing orange Allergy Difficulty Verified 07/07/17 11:29 Breathing codeine AdvReac Insomnia Verified 07/07/17 11:29 Pineapple AdvReac Abdominal Verified 07/07/17 11:29 Pain - Meds/Allergy Pre-op Review Medications Reviewed: Yes Allergies Reviewed: Yes Beta Blockers on Current Med List: No Anesthesia Results - Labs 07/08/17 00:48 07/08/17 04:46 Laboratory Tests 07/06/17 07/08/17 07/08/17 16:04 00:48 00:48 WBC 8.7 Hgb 10.1 L Hct 29.4 L Plt Count 248 PT 11.1 INR 1.0 APTT 28.2 Sodium Potassium 3.5 BUN 5 L Creatinine 0.72 07/08/17 10:27 WBC Hgb Hct Plt Count PT INR APTT Sodium 124 L Potassium BUN Creatinine Anesthesia Exam Vital Signs/O2 Sat, Most Current Temp Pulse Resp BP Pulse Ox 98.4 F 82 18 122/79 97 07/08/17 07:23 07/08/17 08:52 07/08/17 07:23 07/08/17 07:23 07/08/17 08:52 Height: 5'7.5"/1.71m Weight: 134 lbs/60.9 kg NPO (# of Hours): 8 Pain Scale: 0 Pain Scale Used: Numeric (1 - 10) - HEENT Pupil (Motor): EOMI Mallampati: III Teeth: Normal Oral Opening: Greater than 3 - SIDE DOOR WORKER LOC: Oriented SIDE DOOR WORKER Motor: Normal RUE, Normal LUE, Normal RLE, Normal LLE, Normal Face SIDE DOOR WORKER Sensory: Normal: RUE, LUE, RLE, LLE, Face - Cardiac Rhythm: Regular Murmur: None - Pulmonary Breath Sounds: bilateral Clear Respiratory Effort: Symmetrical Anesthesia Assess/Plan ASA Score: 3 Modified Sunil Scale for Level of Consciousness: Cooperative, oriented, and tranquil Anesthetic Plan: MAC Monitoring Plan: Standard Monitors
[2017-07-08] MEDS ORDERED: *HR* Propofol 200 MG/20 ML VIAL IVP ONE (11:10)
--- NOTE | 2017-07-08 12:33 | Anesthesia Evaluation Post Op ---
Date of Encounter: 07/08/17 Time of Encounter: 12:33 - Vital Signs Vital Signs: Vital Signs/O2 Sat, Most Current Temp Pulse Resp BP Pulse Ox 98.2 F 86 20 114/56 96 07/08/17 11:00 07/08/17 11:00 07/08/17 11:00 07/08/17 11:00 07/08/17 11:00 - Lungs Lungs: Clear Ascult./Percussion - Airway Airway: Non-obstructed - Cardiovascular Regular Rate - Mental Status Mental Status: Alert & Oriented, Answers Appropriately - Pain Pain Scale: 0 Pain Scale used: Numeric (1 - 10) - Nausea Vomiting Nausea Vomiting: Not Present - Hydration Hydration: NPO, Has not voided - Discharge PostOp Status: Transfer Patient to floor
[2017-07-08] MEDS: D5% in 0.45% NACL 1,000 ML IVC SCH (17:55)
--- NOTE | 2017-07-08 18:44 | Electrocardiograph Report ---
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
--- NOTE | 2017-07-08 22:36 | Nephrology Progress Note ---
Date of Encounter: 07/08/17 Time of Encounter: 11:30 - Assessment and Plan (1) Hyponatremia Current Visit: Yes Status: Acute Hyponatremia was over corrected. DDavp and hypotonic fluid were used to bring the sodium to a safer level. It is ok for her sodium level to rise to 130. D5 has been discontinued and 0.45 started. May be able to transition to 0.9. Patient is asymptomatic. (2) GI bleed Current Visit: Yes Status: Acute Qualifiers: GI bleed type/associated pathology: unspecified gastrointestinal hemorrhage type Qualified Code(s): K92.2 - Gastrointestinal hemorrhage, unspecified (3) Schizophrenia Current Visit: Yes Status: Chronic Qualifiers: Schizophrenia type: unspecified Qualified Code(s): F20.9 - Schizophrenia, unspecified (4) Anemia Current Visit: Yes Status: Acute Qualifiers: Qualified Code(s): D64.9 - Anemia, unspecified Subjective Principal diagnosis: hyponatremia Interval history: Patient seen she has no new complaints. Objective - Vital Signs Vital signs: Vital Signs Temp Pulse Resp BP Pulse Ox 07/08/17 19:49 99.5 F 99 15 129/70 96 07/08/17 19:45 97 07/08/17 16:35 98.8 F 97 14 129/80 99 07/08/17 15:49 100 07/08/17 13:10 85 16 128/62 100 07/08/17 13:00 86 07/08/17 12:45 97.5 F L 92 16 111/72 98 07/08/17 11:00 98.2 F 86 20 114/56 96 07/08/17 08:52 82 97 07/08/17 07:23 98.4 F 84 18 122/79 97 07/08/17 04:03 100.7 F H 98 18 119/70 96 07/07/17 23:40 98.3 F 80 16 125/73 96 07/07/17 22:56 97.8 F 88 18 132/68 95 Intake and Output 07/08/17 07/08/17 07/08/17 07:59 15:59 23:59 Intake Total 1200 / 1200 0 / 0 240 / 240 Output Total 900 / 900 250 / 250 Balance 1200 / 1200 -900 / -900 -10 / -10 Intake: IV Fluids 1200 / 1200 Dextrose 5% 1,000 ML @ 100 mls/ 1000 / 1000 hr IVC .Q10H [facility] Rx#:[id number] Protonix 40 MG In 0.9 % Sodium 200 / 200 Chloride (Mini-Bag +) 100 ML @ 20 mls/hr IVC .Q5H [facility] Rx#: [id number] Oral 0 / 0 240 / 240 Output: Urine 900 / 900 250 / 250 Other: Meal Dinner Percent of Meal Consumed 90% # Voids 1 Weight 60.9 kg Patient Weight 07/08/17 23:59 Weight 60.9 kg - General Appearance General appearance: Present: well-developed, chronically ill, frail EENT: Present: ATNC Cardiology: Present: no edema Integumentary: Present: warm and dry Psychiatric: Present: mood/affect appropriate - Lab 07/08/17 00:48 07/08/17 15:53 Most recent lab results Calcium 8.3 mg/dL (8.6-10.3) L 07/08/17 00:48 Magnesium 1.8 mg/dL (1.6-2.6) 07/07/17 04:00 - VTE Documentation of Mechanical Device: Intermittent pneumatic compression device Consult Discharge Plan - Plan [facility]: [facility] Care Provider[facility] - 07/19/17 11:00 am
[2017-07-09 04:35] LABS: Basophils % 0.3 %; Eosinophils # 0.3 K/mcL (0.0-0.6); Eosinophils % 2.5 %; Hematocrit 29.2 % (35.3-44.9); Immature Granulocytes % 0.3 % (0-4); Lymphocytes # 1.9 K/mcL (0.6-4.6); Lymphocytes % 16.3 %; Mean Corpuscular HGB Conc 34.2 g/dL (31.6-35.5); Mean Corpuscular Hemoglobin 30.7 pg (28.0-33.3); Mean Corpuscular Volume 89.6 fL (83.0-100.0); Mean Platelet Volume 9.6 fL (9.4-12.4); Monocytes # 0.9 K/mcL (0.0-1.3); Monocytes % 7.6 %; Neutrophils # 8.7 K/mcL (1.6-8.9); Platelet Count 261 K/mcL (140-400); Red Blood Count 3.26 M/mcL (3.82-4.97); Red Cell Distribution Width 12.5 % (11.5-14.5)
[2017-07-09 04:53] LABS: BUN/Creatinine Ratio 8 (6-26); Blood Urea Nitrogen 5 mg/dL (6-20); Calcium 8.7 mg/dL (8.6-10.3); Carbon Dioxide 24 mEq/L (23-29); Chloride 95 mEq/L (98-107); Glucose 107 mg/dL (70-105); Magnesium 1.6 mg/dL (1.6-2.6); Osmolality,Calculated 262 (280-300); Phosphorous 3.3 mg/dL (2.7-4.5); Potassium 3.8 mEq/L (3.5-5.1); Sodium 127 mEq/L (136-145); eGFR For African Americans > 60 (> 60); eGFR For Non-African Americans > 60 (> 60)
[2017-07-09] MEDS: D5% in 0.45% NACL 1,000 ML IVC SCH (07:40)
--- NOTE | 2017-07-09 10:27 | Nephrology Progress Note ---
Date of Encounter: 07/09/17 Time of Encounter: 10:25 - Assessment and Plan (1) Hyponatremia Current Visit: Yes Status: Acute Na+ 127 today, improving nicely (2) GI bleed Current Visit: Yes Status: Acute per primary team Qualifiers: GI bleed type/associated pathology: unspecified gastrointestinal hemorrhage type Qualified Code(s): K92.2 - Gastrointestinal hemorrhage, unspecified (3) Schizophrenia Current Visit: Yes Status: Chronic per primary team Qualifiers: Schizophrenia type: unspecified Qualified Code(s): F20.9 - Schizophrenia, unspecified Subjective Principal diagnosis: hyponatremia Interval history: Patient seen and examined. States she is doing "ok" Objective - Vital Signs Vital signs: Vital Signs Temp Pulse Resp BP Pulse Ox 07/09/17 07:44 87 07/09/17 07:18 95 07/09/17 07:08 97.9 F 83 17 110/64 95 07/09/17 03:32 98.5 F 87 14 114/64 96 07/08/17 23:33 98.9 F 89 15 120/66 99 07/08/17 23:22 87 07/08/17 19:49 99.5 F 99 15 129/70 96 07/08/17 19:45 97 07/08/17 16:35 98.8 F 97 14 129/80 99 07/08/17 15:49 100 07/08/17 13:10 85 16 128/62 100 07/08/17 13:00 86 07/08/17 12:45 97.5 F L 92 16 111/72 98 07/08/17 11:00 98.2 F 86 20 114/56 96 Intake and Output 07/08/17 07/09/17 07/09/17 23:59 07:59 15:59 Intake Total 940 / 940 1000 / 1000 360 / 360 Output Total 550 / 550 1000 / 1000 300 / 300 Balance 390 / 390 0 / 0 60 / 60 Intake: IV Fluids 1000 / 1000 D5% And 0.45% Nacl 1000 Ml Bag 1000 / 1000 1,000 ML @ 75 mls/hr IVC . [id number] [facility] Rx#:[id number] Oral 940 / 940 0 / 0 360 / 360 Output: Urine 550 / 550 1000 / 1000 300 / 300 Other: Meal Dinner Breakfast Percent of Meal Consumed 90% 100% # Voids 1 Weight 60.6 kg Patient Weight 07/09/17 23:59 Weight 60.6 kg - General Appearance General appearance: Present: well-developed, well-nourished EENT: Present: ATNC, mucous membranes moist, hearing intact, vision intact Neck: Present: supple Cardiology: Present: regular rate, regular rhythm Gastrointestinal: Present: no tenderness, no guarding Neurologic: Present: alert and oriented x3 Psychiatric: Present: mood/affect appropriate (somewhat reserved, quiet) - Lab 07/09/17 04:15 07/09/17 04:15 Most recent lab results Calcium 8.7 mg/dL (8.6-10.3) 07/09/17 04:15 Phosphorus 3.3 mg/dL (2.7-4.5) 07/09/17 04:15 Magnesium 1.6 mg/dL (1.6-2.6) 07/09/17 04:15 - VTE Documentation of Mechanical Device: Intermittent pneumatic compression device Consult Discharge Plan - Plan [facility]errals: [facility] [Primary Care Provider[facility] - 07/19/17 11:00 am
--- NOTE | 2017-07-09 15:42 | Internal Med Progress Note ---
Date of Encounter: 07/09/17 Time of Encounter: 15:39 - Assessment and plan (1) GI bleed Current Visit: Yes Status: Acute Assessment and plan: Upper GI endoscopy done yesterday hernia and an irregular Z line. No signs of active bleeding. Has been tolerating oral diet well since then. Continue PPI. Hemoglobin levels are stable. Qualifiers: GI bleed type/associated pathology: unspecified gastrointestinal hemorrhage type Qualified Code(s): K92.2 - Gastrointestinal hemorrhage, unspecified (2) Hyponatremia Current Visit: Yes Status: Acute Assessment and plan: Improved. Sodium 130 today. Will stop all IV fluids. Possible discharge tomorrow if sodium levels remain stable. (3) Schizophrenia Current Visit: Yes Status: Chronic Assessment and plan: Not currently having any psychotic symptoms. Patient receives haloperidol injection twice weekly. Will continue the same after discharge. Qualifiers: Schizophrenia type: unspecified Qualified Code(s): F20.9 - Schizophrenia, unspecified (4) DVT prophylaxis Current Visit: Yes Status: Acute Assessment and plan: With SCDs - Time Spent With Patient Total time spent is greater than 50% in coordination of care (as documented) at patient's floor/unit and/or counseling patient: - Subjective Interval history: Patient is awake and alert. Denies any new complaints at this time. Tolerating diet well. No fever or chills reported overnight. No nausea or vomiting. - Constitutional Vitals: Temp Pulse Resp BP Pulse Ox 98.0 F 92 20 125/59 100 07/09/17 11:41 07/09/17 12:39 07/09/17 11:41 07/09/17 11:41 07/09/17 11:41 General appearance: Present: A&O X 3, no acute distress, answers questions appropriately - Neck Neck exam general surgery: Present: supple, trachea midline. Absent: lymphadenopathy - Respiratory Respiratory exam: Present: CTAB. Absent: accessory muscle use, rales, rhonchi, wheezes - Cardiovascular Cardiovascular exam: Present: RRR, +S1, +S2. Absent: diastolic murmur, gallop, rubs, systolic murmur - GI/Abdominal GI/Abdominal exam: Present: normal bowel sounds, soft, no peritoneal signs. Absent: distended, tenderness - Extremities Exam Extremities exam: Present: warm, radial pulses palpable and symmetrical. Absent : calf tenderness, cyanotic, pedal edema - Neurological Exam Neurological exam: Present: alert, no focal deficits. Absent: facial droop, speech deficit Internal Medicine: Result - Labs CBC & Chem 7: 07/09/17 04:15 07/09/17 11:05 Labs: Short CBC 07/09/17 Range/Units 04:15 WBC 11.9 H (4.3-11.1) K/mcL Hgb 10.0 L (11.5-15.4) g/dL Hct 29.2 L (35.3-44.9) % Plt Count 261 (140-400) K/mcL Neutrophils # 8.7 (1.6-8.9) K/mcL BMP 07/08/17 07/08/17 07/09/17 15:53 22:21 04:15 Sodium 121 L 123 L 127 L Potassium 3.8 Chloride 95 L Carbon Dioxide 24 BUN 5 L Creatinine 0.66 Glucose 107 H Calcium 8.7 07/09/17 11:05 Sodium 130 L Potassium Chloride Carbon Dioxide BUN Creatinine Glucose Calcium - ABG Interpretation ABG results: PT/INR, D-dimer PT 11.1 Seconds (9.4-12.1) 07/06/17 16:04 - VTE Documentation of Mechanical Device: Intermittent pneumatic compression device Consult Discharge Plan - Plan [facility]errals: [facility] [Primary Care Provider[facility] - 07/19/17 11:00 am
[2017-07-10 04:54] LABS: BUN/Creatinine Ratio 17 (6-26); Blood Urea Nitrogen 13 mg/dL (6-20); Calcium 8.9 mg/dL (8.6-10.3); Carbon Dioxide 26 mEq/L (23-29); Chloride 103 mEq/L (98-107); Glucose 94 mg/dL (70-105); Osmolality,Calculated 280 (280-300); Potassium 4.2 mEq/L (3.5-5.1); Sodium 135 mEq/L (136-145); eGFR For African Americans > 60 (> 60); eGFR For Non-African Americans > 60 (> 60)
[2017-07-10] MEDS ORDERED: Multivit/Ca/Min/Fe/FA 1 TAB TABLET PO SCH (09:00)
[2017-07-10] MEDS ORDERED: Cholecalciferol (D-3) 1,000 UNIT TABLET PO SCH (09:00)
[2017-07-10 11:08] VITALS: BP 104/58
--- NOTE | 2017-07-10 11:43 | Discharge Summary ---
- NOTES TO OUTPATIENT PROVIDER Notes to Outpatient Provider: Patient initially admitted here with GI bleed and hyponatremia. Underwent upper GI endoscopy was found to have hiatal hernia with some irregular Z line which has been biopsied. No active bleeding. Hemoglobin levels have stabilized. On on PPI. She was also hyponatremic with sodium of 118 on arrival. 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 Her sodium levels are now improved and stable at 135. Recommend closely monitoring her fluid intake and restricting it to 2-3 L per day Orders not resulted at time of discharge: Pending orders 07/07/17 01:28 Occult Blood,Stool [BF] Stat 07/08/17 12:22 Surgical Pathology [PTH] Routine Date of Encounter: 07/10/17 Time of Encounter: 11:41 - Discharge Diagnosis (1) GI bleed Priority: Primary Status: Resolved Qualifiers: GI bleed type/associated pathology: unspecified gastrointestinal hemorrhage type Qualified Code(s): K92.2 - Gastrointestinal hemorrhage, unspecified (2) Hyponatremia Priority: Secondary Status: Acute (3) Schizophrenia Priority: Secondary Status: Chronic Qualifiers: Schizophrenia type: unspecified Qualified Code(s): F20.9 - Schizophrenia, unspecified (4) DVT prophylaxis Priority: Secondary Status: Acute Hospital course: Ms. Padilla is a 57 year old female patient with history of schizophrenia [facility] here with hematemesis/GI bleed and hyponatremia. She was placed on PPI. She then underwent upper GI endoscopy was found to have hiatal hernia with some irregular Z line which has been biopsied. No active bleeding. Hemoglobin levels have stabilized. On PPI. She was also hyponatremic with sodium of 118 on arrival. 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 She was placed on IV fluids and given DDAVP with improvement in sodium levels. She initially corrected too quickly and then was placed on D5 solution to slow down the correction rate. Eventually her sodium levels have improved and she is currently stable at 135. I would recommend closely monitoring her fluid intake and restricting it to 2-3 L of free water per day. She will follow up with her primary care provider for further management of her chronic medical issues. Discharge discussed with: patient, nurse - Time Spent with Patient Total time spent providing and/or coordinating discharge services: Less than 30 minutes (25 min) - Discharge Medications Prescriptions: Omeprazole [PriLOSEC] 20 mg PO BIDAC #60 capsule. Home Medications: Benztropine Mesylate 1 mg PO BID PRN 07/06/17 [History] Cholecalciferol (D-3) [Vitamin D] 1,000 unit PO DAILY 07/06/17 [History] Docusate Sodium [Stool Softener] 100 mg PO BID 07/06/17 [History] Haloperidol Decanoate [Haldol Decanoate 100] 1.5 ml IM Q2W 07/06/17 [History] Magnesium Oxide [Magnesium] 250 mg PO QTUTHSA 07/06/17 [History] Multivitamin [Multivitamins] 1 each PO DAILY 07/06/17 [History] Omeprazole [PriLOSEC] 20 mg PO BIDAC #60 capsule. 07/10/17 [Rx] Allergies/Adverse Reactions: 3 Allergy/AdvReac Type Severity Reaction Status Date / Time [place] And Derivatives Allergy Difficulty Verified 07/07/17 11:29 Breathing orange Allergy Difficulty Verified 07/07/17 11:29 Breathing codeine AdvReac Insomnia Verified 07/07/17 11:29 Pineapple AdvReac Abdominal Verified 07/07/17 11:29 Pain Date of admission: 07/06/17 18:34 [facility] care physician[facility] Consults: 07/06/17 19:37 Consult to Surgery [CONS] Routine Consulting Provider: [facility] Reason for Consult: GI bleed Call Completed: Yes 07/06/17 21:06 Consult to Psychiatry [CONS] Routine Consulting Provider: Psychiatry Emily Reason for Consult: Schizophrenia Call Completed: No Discharging clinician: Peterson Gonzalez Anticipated date of discharge: 07/10/17 - Constitutional Vitals: Temp Pulse Resp BP Pulse Ox 97.7 F 100 20 104/58 98 07/10/17 11:07 07/10/17 11:07 07/10/17 11:07 07/10/17 11:07 07/10/17 11:07 General appearance: Present: A&O X 3, no acute distress, answers questions appropriately - Neck Neck exam general surgery: Present: supple, trachea midline. Absent: lymphadenopathy - Respiratory Respiratory exam: Present: CTAB. Absent: accessory muscle use, rales, rhonchi, wheezes - Cardiovascular Cardiovascular exam: Present: RRR, +S1, +S2. Absent: diastolic murmur, gallop, rubs, systolic murmur - GI/Abdominal GI/Abdominal exam: Present: normal bowel sounds, soft, no peritoneal signs. Absent: distended, tenderness - Patient Status Disposition: Home, Self-Care Condition: Good Functional capacity at discharge: independent ambulation Overall status at discharge: patient is progressing back to baseline - Discharge Instructions Instructions: Omeprazole (By mouth), Anemia (GEN) [facility]: [facility] Care Provider[facility] - 07/19/17 11:00 am - Diet and Activity Activity: increase activity as tolerated Diet: low fat, low cholesterol, low salt diet, other (Restrict free water to 2- 3 L per day) - VTE Documentation of Mechanical Device: Intermittent pneumatic compression device
--- NOTE | 2017-07-10 12:00 | Nephrology Progress Note ---
Date of Encounter: 07/10/17 Time of Encounter: 12:00 - Assessment and Plan (1) Hyponatremia Current Visit: Yes Status: Acute Hyponatremia was over corrected. DDavp and hypotonic fluid were used to bring the sodium to a safer level. It is ok for her sodium level to rise to 130. D5 has been discontinued and 0.45 started. May be able to transition to 0.9. Patient is asymptomatic. (2) GI bleed Current Visit: Yes Status: Resolved Qualifiers: GI bleed type/associated pathology: unspecified gastrointestinal hemorrhage type Qualified Code(s): K92.2 - Gastrointestinal hemorrhage, unspecified (3) Schizophrenia Current Visit: Yes Status: Chronic Qualifiers: Schizophrenia type: unspecified Qualified Code(s): F20.9 - Schizophrenia, unspecified (4) Anemia Current Visit: Yes Status: Acute Qualifiers: Qualified Code(s): D64.9 - Anemia, unspecified Subjective Principal diagnosis: hyponatremia Interval history: Patient seen she has no new complaints. Objective - Vital Signs Vital signs: Vital Signs Temp Pulse Resp BP Pulse Ox 07/10/17 11:07 97.7 F 100 20 104/58 98 07/10/17 07:39 98.1 F 86 19 113/64 90 07/10/17 03:36 98.4 F 78 16 122/64 100 07/10/17 03:35 77 07/10/17 00:25 83 07/09/17 22:49 98.1 F 96 16 121/64 100 07/09/17 20:05 110 07/09/17 20:01 97.7 F 93 16 114/57 99 07/09/17 15:50 98.4 F 97 15 121/57 100 07/09/17 12:39 92 Intake and Output 07/09/17 07/10/17 07/10/17 23:59 07:59 15:59 Intake Total 360 / 360 Output Total 1800 / 1800 700 / 700 400 / 400 Balance -1800 / -1800 -700 / -700 -40 / -40 Intake: Oral 360 / 360 Output: Urine 1800 / 1800 700 / 700 400 / 400 Other: Meal Breakfast Percent of Meal Consumed 100% Stool Size Large Stool Consistency formed Stool Color Green [place] Weight 55.4 kg Patient Weight 07/10/17 23:59 Weight 55.4 kg - Lab 07/09/17 04:15 07/10/17 03:54 Most recent lab results Calcium 8.9 mg/dL (8.6-10.3) 07/10/17 03:54 Phosphorus 3.3 mg/dL (2.7-4.5) 07/09/17 04:15 Magnesium 1.6 mg/dL (1.6-2.6) 07/09/17 04:15 - VTE Documentation of Mechanical Device: Intermittent pneumatic compression device Consult Discharge Plan - Plan Instructions: Anemia (GEN) [facility]errals: [facility] [Primary Care Provider] - 07/19/17 11:00 am Prescriptions: Omeprazole [PriLOSEC] 20 mg PO BIDAC #60 capsule.
== END 2017-07-10 13:58 | disposition home or self-care (01) | DRG 378 ==
LOC: EMEROO 15:48 → 2NNU 18:34 → SUATTDRO 18:34 → 2NNU 19:23
PROVIDERS: ADMIT Student in an Organized Health Care Education/Training Program; ATTEND Internal Medicine
PROC: ENDOEBX (2017-07-08 15:00)

== ENCOUNTER 2021-03-14 13:35 | Inpatient (IN) ==
[2021-03-14 15:12] LABS: Eosinophils % 0.6 %; Hematocrit 28.5 % (35.3-44.9); Hemoglobin 9.8 g/dL (11.5-15.4); Immature Granulocytes % 0.4 % (0-4); Lymphocytes # 1.3 K/mcL (0.6-4.6); Lymphocytes % 26.2 %; Mean Corpuscular HGB Conc 34.4 g/dL (31.6-35.5); Mean Corpuscular Hemoglobin 32.6 pg (28.0-33.3); Mean Corpuscular Volume 94.7 fL (83.0-100.0); Mean Platelet Volume 9.2 fL (9.4-12.4); Monocytes # 0.4 K/mcL (0.0-1.3); Neutrophils # 3.2 K/mcL (1.6-8.9); Platelet Count 235 K/mcL (140-400); Red Blood Count 3.01 M/mcL (3.82-4.97); Red Cell Distribution Width 13.2 % (11.5-14.5); Segmented Neutrophils % 64.8 %; White Blood Count 4.9 K/mcL (4.3-11.1)
[2021-03-14 15:16] LABS: Amphetamine Screen,Urine Negative ng/mL (Cutoff=1000); Barbiturate Screen,Urine Negative ng/mL (Cutoff=200); Benzodiazepines Screen,Urine Negative ng/mL (Cutoff=200); Cannabinoid Screen,Urine Negative ng/mL (Cutoff = 50); Cocaine Screen,Urine Negative ng/mL (Cutoff= 300); Opiate Screen,Urine Negative ng/mL (Cutoff=300); Phencyclidine Screen,Urine Negative ng/mL (Cutoff=25)
[2021-03-14 15:26] LABS: Acetaminophen < 10 mcg/mL (10-20); Alanine Aminotransferase 24 Units/L (7-52); Albumin 3.5 g/dL (3.5-5.7); Albumin/Globulin Ratio 1.2 (1.1-2.2); Alkaline Phosphatase 86 Units/L (34-104); Aspartate Amino Transferase 35 Units/L (13-39); BUN/Creatinine Ratio 11 (6-26); Bilirubin,Total 0.2 mg/dL (0.3-1.0); Blood Urea Nitrogen 8 mg/dL (8-23); Calcium 7.8 mg/dL (8.6-10.3); Carbon Dioxide 22 mEq/L (23-29); Chloride 96 mEq/L (98-107); Ethanol < 10 mg/dL (Less than 10); Globulin 2.9 g/dL (2.4-3.5); Glucose 117 mg/dL (70-105); Osmolality,Calculated 269 (280-300); Potassium 3.1 mEq/L (3.5-5.1); Salicylate < 2.5 mg/dL (15.0-30.0); Sodium 130 mEq/L (136-145); Total Protein 6.4 g/dL (6.4-8.9); eGFR For African Americans > 60 (> 60); eGFR For Non-African Americans > 60 (> 60)
[2021-03-14] MEDS ORDERED: Potassium Effervescent 25 MEQ TABLET.EFF PO ONE (16:34)
[2021-03-15 12:16] LABS: Influenza A PCR Negative (Negative); Influenza B PCR Negative (Negative); Resp. Syncytial Virus PCR Negative (Negative)
[2021-03-15 12:21] LABS: SARS-CoV-2 by PCR (In House) Positive (Negative)
[2021-03-15] MEDS ORDERED: Acetaminophen 325 MG TABLET PO ONE (18:23)
[2021-03-15] MEDS ORDERED: Ondansetron 4 MG/2 ML VIAL IVP PRN (19:34)
[2021-03-15] MEDS ORDERED: Naloxone 0.4 MG/ML INJ IVP PRN (19:34)
[2021-03-15] MEDS ORDERED: Melatonin 3 MG TABLET PO PRN (19:34)
[2021-03-15] MEDS ORDERED: Ipratropium 1 PUFF INHALER IH PRN (21:58)
[2021-03-15] MEDS ORDERED: Haloperidol Decanoate 50 MG/ML VIAL IM SCH (22:15)
[2021-03-15 23:33] LABS: Bacteria,Urine Few per hpf (None-Few); Bilirubin,Urine Negative (Negative); Blood,Urine Negative (Negative); Clarity,Urine Turbid (Clear); Color,Urine Light-Yellow (Yellow); Glucose,Urine (UA) Normal (Normal); Ketones,Urine Negative (Negative); Leukocyte Esterase,Urine Large (Negative); Mucus,Urine Few per lpf (None-Few); Nitrite,Urine Negative (Negative); PH,Urine 6.5 pH Units (5.0-8.0); Protein,Urine Negative (Neg-Trace); Specific Gravity,Urine 1.007 (1.010-1.025); Squamous Epithelial Cell,Urine Few per hpf (None-Few); Urobilinogen,Urine Normal (Normal); WBC,Urine 15-30 per hpf (0-3)
[2021-03-15] MEDS: Saline Nasal Spray 44 ML BOTTLE NS SCH (23:35)
[2021-03-16 01:01] LABS: Hematocrit 30.4 % (35.3-44.9); Hemoglobin 9.9 g/dL (11.5-15.4); Mean Corpuscular HGB Conc 32.6 g/dL (31.6-35.5); Mean Corpuscular Hemoglobin 31.2 pg (28.0-33.3); Mean Corpuscular Volume 95.9 fL (83.0-100.0); Mean Platelet Volume 9.5 fL (9.4-12.4); Platelet Count 246 K/mcL (140-400); Red Blood Count 3.17 M/mcL (3.82-4.97); Red Cell Distribution Width 13.2 % (11.5-14.5); White Blood Count 6.9 K/mcL (4.3-11.1)
[2021-03-16 01:21] LABS: BUN/Creatinine Ratio 13 (6-26); Blood Urea Nitrogen 13 mg/dL (8-23); Calcium 7.9 mg/dL (8.6-10.3); Carbon Dioxide 25 mEq/L (23-29); Chloride 99 mEq/L (98-107); Glucose 101 mg/dL (70-105); Magnesium 1.7 mg/dL (1.6-2.6); Osmolality,Calculated 276 (280-300); Phosphorous 3.3 mg/dL (2.7-4.5); Potassium 3.4 mEq/L (3.5-5.1); Sodium 133 mEq/L (136-145); eGFR For African Americans > 60 (> 60); eGFR For Non-African Americans 56 (> 60)
[2021-03-16 01:26] LABS: C-Reactive Protein 57 mg/L (Less than 10); Iron 14 mcg/dL (50-170); Lactate Dehydrogenase 280 Units/L (140-271)
[2021-03-16 01:41] LABS: Ferritin 84 ng/mL (10-120)
[2021-03-16 01:52] LABS: Folate > 22.3 ng/mL (3.0-16.0); Vitamin B12 1222 pg/mL (250-1100)
[2021-03-16] MEDS: *HR* Heparin 5,000 UNIT/ML VIAL SQ SCH ×3 (04:41→20:57)
[2021-03-16] MEDS: Lactobacillus 1 EACH CAP.SPRINK PO SCH ×2 (08:46→20:57)
[2021-03-16] MEDS: Multivit/Ca/Min/Fe/FA 1 TAB TABLET PO SCH (08:46)
[2021-03-16] MEDS: cefTRIAXone 1,000 MG in 0.9 % Sodium Chloride Mini Bag 100 ML IVPB SCH (08:46)
[2021-03-16] MEDS: Cholecalciferol (D-3) 1,000 UNIT (25MCG) TABLET PO SCH (08:46)
[2021-03-16] MEDS: Cyanocobalamin (B-12) 1,000 MCG TABLET PO SCH (08:46)
[2021-03-16] MEDS: Pyridoxine (B-6) 50 MG TABLET PO SCH (08:59)
[2021-03-16] MEDS: Fluticasone Propionate Nasal 50 MCG/SPRAY BOTTLE NS SCH (08:59)
[2021-03-16] MEDS ORDERED: Haloperidol Lactate 5 MG/ML VIAL IVP PRN (12:26)
[2021-03-16] MEDS: Acetaminophen 325 MG TABLET PO PRN (18:01)
[2021-03-16] MEDS: Saline Nasal Spray 44 ML BOTTLE NS SCH (20:58)
[2021-03-17] MEDS: Acetaminophen 325 MG TABLET PO PRN (03:35)
[2021-03-17] MEDS: *HR* Heparin 5,000 UNIT/ML VIAL SQ SCH ×3 (04:29→21:36)
[2021-03-17] MEDS: Levothyroxine 25 MCG TABLET PO SCH (05:49)
[2021-03-17] MEDS: Fluticasone Propionate Nasal 50 MCG/SPRAY BOTTLE NS SCH (07:57)
[2021-03-17] MEDS: Multivit/Ca/Min/Fe/FA 1 TAB TABLET PO SCH (07:57)
[2021-03-17] MEDS: Cyanocobalamin (B-12) 1,000 MCG TABLET PO SCH (07:57)
[2021-03-17] MEDS: Cholecalciferol (D-3) 1,000 UNIT (25MCG) TABLET PO SCH (07:57)
[2021-03-17] MEDS: Lactobacillus 1 EACH CAP.SPRINK PO SCH ×2 (07:58→21:37)
[2021-03-17] MEDS: Pyridoxine (B-6) 50 MG TABLET PO SCH (07:58)
[2021-03-17] MEDS: cefTRIAXone 1,000 MG in 0.9 % Sodium Chloride Mini Bag 100 ML IVPB SCH (07:58)
[2021-03-17] MEDS: Saline Nasal Spray 44 ML BOTTLE NS SCH (21:59)
[2021-03-18] MEDS: *HR* Heparin 5,000 UNIT/ML VIAL SQ SCH ×3 (00:21→20:35)
[2021-03-18] MEDS: Levothyroxine 25 MCG TABLET PO SCH (05:46)
[2021-03-18] MEDS: Pyridoxine (B-6) 50 MG TABLET PO SCH (07:44)
[2021-03-18] MEDS: Lactobacillus 1 EACH CAP.SPRINK PO SCH ×2 (07:45→20:35)
[2021-03-18] MEDS: Cyanocobalamin (B-12) 1,000 MCG TABLET PO SCH (07:50)
[2021-03-18] MEDS: Multivit/Ca/Min/Fe/FA 1 TAB TABLET PO SCH (07:50)
[2021-03-18] MEDS: Cholecalciferol (D-3) 1,000 UNIT (25MCG) TABLET PO SCH (07:50)
[2021-03-18] MEDS: Fluticasone Propionate Nasal 50 MCG/SPRAY BOTTLE NS SCH (07:57)
[2021-03-18 12:19] LABS: % Iron Saturation 5 % (15-50); Transferrin 214 mg/dL (200-400)
[2021-03-18] MEDS: Saline Nasal Spray 44 ML BOTTLE NS SCH (20:35)
[2021-03-19] MEDS: *HR* Heparin 5,000 UNIT/ML VIAL SQ SCH ×3 (05:16→19:53)
[2021-03-19] MEDS: Levothyroxine 25 MCG TABLET PO SCH (05:17)
[2021-03-19] MEDS: Pyridoxine (B-6) 50 MG TABLET PO SCH (07:29)
[2021-03-19] MEDS: Fluticasone Propionate Nasal 50 MCG/SPRAY BOTTLE NS SCH (07:29)
[2021-03-19] MEDS: Cyanocobalamin (B-12) 1,000 MCG TABLET PO SCH (07:30)
[2021-03-19] MEDS: Multivit/Ca/Min/Fe/FA 1 TAB TABLET PO SCH (07:30)
[2021-03-19] MEDS: Cholecalciferol (D-3) 1,000 UNIT (25MCG) TABLET PO SCH (07:30)
[2021-03-19] MEDS: Lactobacillus 1 EACH CAP.SPRINK PO SCH ×2 (07:33→19:53)
[2021-03-19] MEDS: Saline Nasal Spray 44 ML BOTTLE NS SCH (19:49)
[2021-03-20] MEDS: Levothyroxine 25 MCG TABLET PO SCH (05:48)
[2021-03-20] MEDS: *HR* Heparin 5,000 UNIT/ML VIAL SQ SCH ×3 (05:48→20:42)
[2021-03-20] MEDS: Cholecalciferol (D-3) 1,000 UNIT (25MCG) TABLET PO SCH (08:04)
[2021-03-20] MEDS: Fluticasone Propionate Nasal 50 MCG/SPRAY BOTTLE NS SCH (08:04)
[2021-03-20] MEDS: Cyanocobalamin (B-12) 1,000 MCG TABLET PO SCH (08:05)
[2021-03-20] MEDS: Pyridoxine (B-6) 50 MG TABLET PO SCH (08:05)
[2021-03-20] MEDS: Multivit/Ca/Min/Fe/FA 1 TAB TABLET PO SCH (08:05)
[2021-03-20] MEDS: Lactobacillus 1 EACH CAP.SPRINK PO SCH ×2 (08:11→20:42)
[2021-03-20] MEDS: Acetaminophen 325 MG TABLET PO PRN (10:03)
[2021-03-20 12:24] LABS: Influenza A PCR Negative (Negative); Influenza B PCR Negative (Negative); Resp. Syncytial Virus PCR Negative (Negative)
[2021-03-20 12:42] LABS: SARS-CoV-2 by PCR (In House) Positive (Negative)
[2021-03-20] MEDS: Saline Nasal Spray 44 ML BOTTLE NS SCH (20:43)
[2021-03-21] MEDS: *HR* Heparin 5,000 UNIT/ML VIAL SQ SCH ×3 (01:59→21:53)
[2021-03-21] MEDS: Levothyroxine 25 MCG TABLET PO SCH (02:00)
[2021-03-21] MEDS: Lactobacillus 1 EACH CAP.SPRINK PO SCH ×2 (07:25→21:53)
[2021-03-21] MEDS: Cyanocobalamin (B-12) 1,000 MCG TABLET PO SCH (07:46)
[2021-03-21] MEDS: Cholecalciferol (D-3) 1,000 UNIT (25MCG) TABLET PO SCH (07:46)
[2021-03-21] MEDS: Pyridoxine (B-6) 50 MG TABLET PO SCH (07:47)
[2021-03-21] MEDS: Multivit/Ca/Min/Fe/FA 1 TAB TABLET PO SCH (07:47)
[2021-03-21] MEDS: Fluticasone Propionate Nasal 50 MCG/SPRAY BOTTLE NS SCH (07:51)
[2021-03-21] MEDS: Saline Nasal Spray 44 ML BOTTLE NS SCH (21:55)
[2021-03-22] MEDS: *HR* Heparin 5,000 UNIT/ML VIAL SQ SCH ×3 (04:06→16:03)
[2021-03-22] MEDS: Levothyroxine 25 MCG TABLET PO SCH (04:56)
[2021-03-22] MEDS: Cholecalciferol (D-3) 1,000 UNIT (25MCG) TABLET PO SCH (07:00)
[2021-03-22] MEDS: Cyanocobalamin (B-12) 1,000 MCG TABLET PO SCH (07:00)
[2021-03-22] MEDS: Pyridoxine (B-6) 50 MG TABLET PO SCH (07:00)
[2021-03-22] MEDS: Fluticasone Propionate Nasal 50 MCG/SPRAY BOTTLE NS SCH (07:00)
[2021-03-22] MEDS: Multivit/Ca/Min/Fe/FA 1 TAB TABLET PO SCH (07:01)
[2021-03-22] MEDS: Lactobacillus 1 EACH CAP.SPRINK PO SCH ×2 (07:03→23:40)
[2021-03-22] MEDS: Loratadine 10 MG TABLET PO SCH (15:42)
[2021-03-22] MEDS: Saline Nasal Spray 44 ML BOTTLE NS SCH (23:40)
[2021-03-23] MEDS: *HR* Heparin 5,000 UNIT/ML VIAL SQ SCH ×2 (05:36→16:09)
[2021-03-23] MEDS: Levothyroxine 25 MCG TABLET PO SCH (05:36)
[2021-03-23] MEDS ORDERED: NON-FORMULARY MEDICATION 1 EACH EACH (Multivitamin/Iron/Folic Acid [Centrum Complete Multi PO SCH (09:00)
[2021-03-23] MEDS: Multivit/Ca/Min/Fe/FA 1 TAB TABLET PO SCH (09:50)
[2021-03-23] MEDS: Cyanocobalamin (B-12) 1,000 MCG TABLET PO SCH (09:50)
[2021-03-23] MEDS: Cholecalciferol (D-3) 1,000 UNIT (25MCG) TABLET PO SCH (09:50)
[2021-03-23] MEDS: Pyridoxine (B-6) 50 MG TABLET PO SCH (09:50)
[2021-03-23] MEDS: Lactobacillus 1 EACH CAP.SPRINK PO SCH ×2 (09:50→19:56)
[2021-03-23] MEDS: Loratadine 10 MG TABLET PO SCH (09:51)
[2021-03-23] MEDS: Fluticasone Propionate Nasal 50 MCG/SPRAY BOTTLE NS SCH (09:51)
[2021-03-23] MEDS: Acetaminophen 325 MG TABLET PO PRN (15:16)
[2021-03-23] MEDS: Saline Nasal Spray 44 ML BOTTLE NS SCH (19:56)
[2021-03-24 02:26] LABS: Basophils % 0.4 %; Eosinophils # 0.4 K/mcL (0.0-0.6); Eosinophils % 4.5 %; Hemoglobin 8.9 g/dL (11.5-15.4); Immature Granulocytes % 0.8 % (0-4); Lymphocytes # 2.1 K/mcL (0.6-4.6); Lymphocytes % 22.2 %; Mean Corpuscular HGB Conc 31.8 g/dL (31.6-35.5); Mean Corpuscular Hemoglobin 30.4 pg (28.0-33.3); Mean Corpuscular Volume 95.6 fL (83.0-100.0); Mean Platelet Volume 9.2 fL (9.4-12.4); Monocytes % 11.2 %; Neutrophils # 5.6 K/mcL (1.6-8.9); Platelet Count 484 K/mcL (140-400); Red Blood Count 2.93 M/mcL (3.82-4.97); Red Cell Distribution Width 12.9 % (11.5-14.5); Segmented Neutrophils % 60.9 %; White Blood Count 9.3 K/mcL (4.3-11.1)
[2021-03-24 02:37] LABS: Alanine Aminotransferase 19 Units/L (7-52); Albumin 3.2 g/dL (3.5-5.7); Albumin/Globulin Ratio 0.9 (1.1-2.2); Alkaline Phosphatase 99 Units/L (34-104); Aspartate Amino Transferase 22 Units/L (13-39); BUN/Creatinine Ratio 21 (6-26); Bilirubin,Total 0.3 mg/dL (0.3-1.0); Blood Urea Nitrogen 17 mg/dL (8-23); C-Reactive Protein 86 mg/L (Less than 10); Calcium 8.7 mg/dL (8.6-10.3); Carbon Dioxide 19 mEq/L (23-29); Chloride 106 mEq/L (98-107); Globulin 3.5 g/dL (2.4-3.5); Glucose 104 mg/dL (70-105); Osmolality,Calculated 278 (280-300); Potassium 4.7 mEq/L (3.5-5.1); Sodium 133 mEq/L (136-145); Total Protein 6.7 g/dL (6.4-8.9); eGFR For African Americans > 60 (> 60); eGFR For Non-African Americans > 60 (> 60)
[2021-03-24] MEDS: *HR* Heparin 5,000 UNIT/ML VIAL SQ SCH (05:04)
[2021-03-24] MEDS: Levothyroxine 25 MCG TABLET PO SCH (05:05)
[2021-03-24] MEDS: Fluticasone Propionate Nasal 50 MCG/SPRAY BOTTLE NS SCH (09:49)
[2021-03-24] MEDS: Cyanocobalamin (B-12) 1,000 MCG TABLET PO SCH (09:49)
[2021-03-24] MEDS: Cholecalciferol (D-3) 1,000 UNIT (25MCG) TABLET PO SCH (09:49)
[2021-03-24] MEDS: Multivit/Ca/Min/Fe/FA 1 TAB TABLET PO SCH (09:49)
[2021-03-24] MEDS: Lactobacillus 1 EACH CAP.SPRINK PO SCH ×2 (09:49→20:57)
[2021-03-24] MEDS: Pyridoxine (B-6) 50 MG TABLET PO SCH (09:49)
[2021-03-24] MEDS: Loratadine 10 MG TABLET PO SCH (09:50)
[2021-03-24] MEDS: Saline Nasal Spray 44 ML BOTTLE NS SCH (21:39)
[2021-03-24] MEDS: Acetaminophen 325 MG TABLET PO PRN (21:39)
[2021-03-25] MEDS: *HR* Enoxaparin 40 MG/0.4 ML SYRINGE SQ SCH (05:57)
[2021-03-25] MEDS: Levothyroxine 25 MCG TABLET PO SCH (05:57)
[2021-03-25] MEDS: Loratadine 10 MG TABLET PO SCH (09:19)
[2021-03-25] MEDS: Pyridoxine (B-6) 50 MG TABLET PO SCH (09:19)
[2021-03-25] MEDS: Cyanocobalamin (B-12) 1,000 MCG TABLET PO SCH (09:19)
[2021-03-25] MEDS: Fluticasone Propionate Nasal 50 MCG/SPRAY BOTTLE NS SCH (09:19)
[2021-03-25] MEDS: Lactobacillus 1 EACH CAP.SPRINK PO SCH ×2 (09:19→20:35)
[2021-03-25] MEDS: Multivit/Ca/Min/Fe/FA 1 TAB TABLET PO SCH (09:19)
[2021-03-25] MEDS: Cholecalciferol (D-3) 1,000 UNIT (25MCG) TABLET PO SCH (09:19)
[2021-03-25] MEDS: Acetaminophen 325 MG TABLET PO PRN (09:21)
[2021-03-25] MEDS: Saline Nasal Spray 44 ML BOTTLE NS SCH (20:36)
[2021-03-26] MEDS: *HR* Enoxaparin 40 MG/0.4 ML SYRINGE SQ SCH (05:29)
[2021-03-26] MEDS: Levothyroxine 25 MCG TABLET PO SCH (05:30)
[2021-03-26] MEDS: Cholecalciferol (D-3) 1,000 UNIT (25MCG) TABLET PO SCH (08:24)
[2021-03-26] MEDS: Lactobacillus 1 EACH CAP.SPRINK PO SCH ×2 (08:24→19:54)
[2021-03-26] MEDS: Cyanocobalamin (B-12) 1,000 MCG TABLET PO SCH (08:24)
[2021-03-26] MEDS: Multivit/Ca/Min/Fe/FA 1 TAB TABLET PO SCH (08:24)
[2021-03-26] MEDS: Pyridoxine (B-6) 50 MG TABLET PO SCH (08:24)
[2021-03-26] MEDS: Loratadine 10 MG TABLET PO SCH (08:25)
[2021-03-26] MEDS: Fluticasone Propionate Nasal 50 MCG/SPRAY BOTTLE NS SCH (08:25)
[2021-03-26] MEDS: Acetaminophen 325 MG TABLET PO PRN (08:27)
[2021-03-26] MEDS: Saline Nasal Spray 44 ML BOTTLE NS SCH (19:54)
[2021-03-27] MEDS: Levothyroxine 25 MCG TABLET PO SCH (05:59)
[2021-03-27] MEDS: *HR* Enoxaparin 40 MG/0.4 ML SYRINGE SQ SCH (05:59)
[2021-03-27] MEDS: Multivit/Ca/Min/Fe/FA 1 TAB TABLET PO SCH (07:36)
[2021-03-27] MEDS: Fluticasone Propionate Nasal 50 MCG/SPRAY BOTTLE NS SCH (07:36)
[2021-03-27] MEDS: Pyridoxine (B-6) 50 MG TABLET PO SCH (07:36)
[2021-03-27] MEDS: Lactobacillus 1 EACH CAP.SPRINK PO SCH ×2 (07:36→20:11)
[2021-03-27] MEDS: Cyanocobalamin (B-12) 1,000 MCG TABLET PO SCH (07:36)
[2021-03-27] MEDS: Cholecalciferol (D-3) 1,000 UNIT (25MCG) TABLET PO SCH (07:36)
[2021-03-27] MEDS: Acetaminophen 325 MG TABLET PO PRN (07:36)
[2021-03-27] MEDS: Loratadine 10 MG TABLET PO SCH (07:36)
[2021-03-27 07:56] LABS: Basophils % 0.5 %; Eosinophils # 0.3 K/mcL (0.0-0.6); Hemoglobin 9.7 g/dL (11.5-15.4); Immature Granulocytes % 0.5 % (0-4); Lymphocytes # 1.9 K/mcL (0.6-4.6); Lymphocytes % 23.6 %; Mean Corpuscular HGB Conc 33.4 g/dL (31.6-35.5); Mean Corpuscular Hemoglobin 31.6 pg (28.0-33.3); Mean Corpuscular Volume 94.5 fL (83.0-100.0); Monocytes # 0.6 K/mcL (0.0-1.3); Monocytes % 7.6 %; Neutrophils # 5.1 K/mcL (1.6-8.9); Platelet Count 580 K/mcL (140-400); Red Blood Count 3.07 M/mcL (3.82-4.97); Segmented Neutrophils % 63.8 %
[2021-03-27 08:14] LABS: BUN/Creatinine Ratio 18 (6-26); Blood Urea Nitrogen 14 mg/dL (8-23); Calcium 9.1 mg/dL (8.6-10.3); Carbon Dioxide 25 mEq/L (23-29); Chloride 100 mEq/L (98-107); Glucose 94 mg/dL (70-105); Osmolality,Calculated 274 (280-300); Potassium 4.3 mEq/L (3.5-5.1); Sodium 132 mEq/L (136-145); eGFR For African Americans > 60 (> 60); eGFR For Non-African Americans > 60 (> 60)
[2021-03-27 10:06] LABS: C-Reactive Protein 25 mg/L (Less than 10)
[2021-03-27] MEDS: Saline Nasal Spray 44 ML BOTTLE NS SCH (20:12)
[2021-03-28] MEDS: *HR* Enoxaparin 40 MG/0.4 ML SYRINGE SQ SCH (05:29)
[2021-03-28] MEDS: Levothyroxine 25 MCG TABLET PO SCH (05:29)
[2021-03-28] MEDS: Pyridoxine (B-6) 50 MG TABLET PO SCH (07:13)
[2021-03-28] MEDS: Lactobacillus 1 EACH CAP.SPRINK PO SCH ×2 (07:13→19:54)
[2021-03-28] MEDS: Multivit/Ca/Min/Fe/FA 1 TAB TABLET PO SCH (07:13)
[2021-03-28] MEDS: Cholecalciferol (D-3) 1,000 UNIT (25MCG) TABLET PO SCH (07:13)
[2021-03-28] MEDS: Cyanocobalamin (B-12) 1,000 MCG TABLET PO SCH (07:13)
[2021-03-28] MEDS: Fluticasone Propionate Nasal 50 MCG/SPRAY BOTTLE NS SCH (07:13)
[2021-03-28] MEDS: Loratadine 10 MG TABLET PO SCH (07:14)
[2021-03-28] MEDS: Acetaminophen 325 MG TABLET PO PRN (13:12)
[2021-03-28] MEDS: Saline Nasal Spray 44 ML BOTTLE NS SCH (19:54)
[2021-03-29] MEDS: *HR* Enoxaparin 40 MG/0.4 ML SYRINGE SQ SCH (06:01)
[2021-03-29] MEDS: Cholecalciferol (D-3) 1,000 UNIT (25MCG) TABLET PO SCH (07:38)
[2021-03-29] MEDS: Lactobacillus 1 EACH CAP.SPRINK PO SCH ×2 (07:39→20:43)
[2021-03-29] MEDS: Cyanocobalamin (B-12) 1,000 MCG TABLET PO SCH (07:39)
[2021-03-29] MEDS: Pyridoxine (B-6) 50 MG TABLET PO SCH (07:39)
[2021-03-29] MEDS: Levothyroxine 25 MCG TABLET PO SCH (07:40)
[2021-03-29] MEDS: Loratadine 10 MG TABLET PO SCH (07:40)
[2021-03-29] MEDS: Multivit/Ca/Min/Fe/FA 1 TAB TABLET PO SCH (07:40)
[2021-03-29] MEDS: Fluticasone Propionate Nasal 50 MCG/SPRAY BOTTLE NS SCH (07:45)
[2021-03-29] MEDS: Acetaminophen 325 MG TABLET PO PRN (09:12)
[2021-03-29] MEDS: Saline Nasal Spray 44 ML BOTTLE NS SCH (20:43)
[2021-03-30 03:43] VITALS: TEMP 97.6
[2021-03-30] MEDS: Levothyroxine 25 MCG TABLET PO SCH (06:20)
[2021-03-30] MEDS: *HR* Enoxaparin 40 MG/0.4 ML SYRINGE SQ SCH (06:20)
[2021-03-30 07:43] VITALS: BP 120/51; PULSE 92; O2SAT 97
[2021-03-30] MEDS: Loratadine 10 MG TABLET PO SCH (07:46)
[2021-03-30] MEDS: Multivit/Ca/Min/Fe/FA 1 TAB TABLET PO SCH (08:09)
[2021-03-30] MEDS: Cyanocobalamin (B-12) 1,000 MCG TABLET PO SCH (08:09)
[2021-03-30] MEDS: Fluticasone Propionate Nasal 50 MCG/SPRAY BOTTLE NS SCH (08:10)
[2021-03-30] MEDS: Lactobacillus 1 EACH CAP.SPRINK PO SCH (08:10)
[2021-03-30] MEDS: Pyridoxine (B-6) 50 MG TABLET PO SCH (08:10)
[2021-03-30] MEDS: Cholecalciferol (D-3) 1,000 UNIT (25MCG) TABLET PO SCH (08:10)
[2021-03-30] MEDS: Acetaminophen 325 MG TABLET PO PRN (08:40)
[2021-03-30] MEDS ORDERED: Haloperidol Lactate 5 MG/ML VIAL IM ONE (15:52)
== END 2021-03-30 16:12 | DRG 178 ==
LOC: 3BNU 13:35 → EMEROOARM 13:35 → SUATTDRO 03-15 19:42 → 3BNU 03-15 19:44 → SUATTDRO 03-18 14:22 → 3BNU 03-29 07:45
PROVIDERS: ADMIT Internal Medicine; ATTEND Internal Medicine